=== PATIENT | male | born 1960 | race Caucasian/White ===

== ENCOUNTER 2016-11-05 00:23 | Inpatient (IN) ==
[2016-11-05 00:47] LABS: MANUAL DIFF NEEDED? NO
[2016-11-05 00:52] LABS: BASO% 0.1 % (0.0-0.8); HEMATOCRIT 41.5 % (42.0-52.0); HEMOGLOBIN 14.3 g/dL (14.0-18.0); IMM GRAN# 0.05 X1000 (0.0-0.04); IMM GRAN% 0.3 % (0.0-0.5); LYMPH% 10.1 % (20.5-51.1); MCH 29.8 PG (27-31); MCHC 34.5 g/dL (33-37); MCV 86.5 FL (81-99); MONO# 1.21 X1000 (0.11-0.59); MONO% 7.6 % (1.7-9.3); MPV 11.4 FL (7.4-10.4); NEUT% 81.9 % (42.2-75.2); PLT 177 X1000 (130-400)
[2016-11-05 01:11] LABS: AGAP 13; ALBUMIN 3.7 g/dL (3.5-5.0); ALKALINE PHOSPHATASE 59 U/L (32-122); BUN 17 mg/dL (8-22); CALCIUM 8.8 mg/dL (8.8-10.2); CHLORIDE 98 mmol/L (98-107); COSMO 277; GOT 12 U/L (10-34); GPT 18 U/L (10-44); MAGNESIUM 1.8 mg/dL (1.5-2.7); SODIUM 134 mmol/L (136-145); TCO2 23 mmol/L (25-35); TOTAL BILIRUBIN 0.99 mg/dL (0.20-1.00); TOTAL PROTEIN 7.3 g/dL (6.3-8.3)
[2016-11-05 01:16] LABS: INR 1.1; PROTIME 11.6 Seconds (9.2-11.7); PTT 30.5 Seconds (22.0-36.0)
[2016-11-05] MEDS ORDERED: TUSSIONEX LIQUID PO ONE (04:40)
[2016-11-05] MEDS: ZOSYN 3.375 GM/NS 3.375 GM/50 ML IVPB IV SCH ×4 (06:07→23:21)
[2016-11-05] MEDS: MORPHINE IV PRN ×3 (06:07→16:38)
[2016-11-05] MEDS: TYLENOL PO PRN (06:07)
--- NOTE | 2016-11-05 06:14 | EKG Report ---
Test Performed on : 11/05/2016 00:18:23 AM Test Reason : CP Blood Pressure : / mmHG Vent. Rate : 100 BPM Atrial Rate : 100 BPM P-R Int : 122 ms QRS Dur : 116 ms QT Int : 362 ms P-R-T Axes : 041 252 056 degrees QTc Int : 466 ms Normal sinus rhythm. Lateral infarct , age undetermined Inferior-posterior infarct , age undetermined Abnormal ECG No previous ECGs available Unconfirmed Result
[2016-11-05 06:52] LABS: HDL 58 mg/dL (35-55); LDL 101 mg/dL; TRIGLYCERIDES 98 mg/dL (39-160); VLDL 20 mg/dL
--- NOTE | 2016-11-05 07:30 | Diag Imaging Result Doc PS360 ---
CHEST-2 VIEWS - 11/05/2016 INDICATION: CP TECHNIQUE: COMPARISON: 10/20/2016 FINDINGS: There is significant worsening in ill-defined infiltrate and effusion at the left lower lobe. This is best appreciated on the lateral view. Stable sternotomy wires. Heart size remains top normal. Urinary vascularity appears normal. IMPRESSION: Worsening infiltrate and effusion at the left lower lobe. Correlate for pneumonia. Electronically signed by Mickey Hilton 11/05/2016 7:28 AM
--- NOTE | 2016-11-05 08:35 | HISTORY AND PHYSICAL ---
PRIMARY SPEARER: Dr. Mcginnis. PRIMARY GENERAL PROVIDER.: The patient apparently does not have a primary general provider. CHIEF COMPLAINT: Chest pain and coughing of blood. HISTORY OF PRESENT ILLNESS: Mr. Doyle is a 55-year-old, male, with a past medical history of hypertension, hyperlipidemia, coronary artery disease status post coronary artery bypass grafting, GERD and seizure disorder. The seizure disorder is questionable as the patient states that he does not have seizures; it is listed on past medical charting. He states that he has migraines. He presented to the emergency room with chest pain and stated that he had been coughing up blood since yesterday. He apparently has a frequent substernal angina and has since his coronary artery bypass graft in April of 2013. He follows up outpatient with Dr. Mcginnis. I believe he saw him last week. A CT scan was obtained in the emergency room. Previously the CT's of his chest have shown a left-sided cavitary lesion. The patient states that he has had surgical intervention on the left lung of unsure etiology. Again, the patient is a poor historian, but I believe that it may have had something to do with a pneumothorax. At any rate, the CT scan was compared to the one done on 06/09/2016, which showed a consolidation at the left lower lobe associated with partially drowned left lower lobe basilar segments, which contains multiple gas and fluid pockets within the parenchyma, which could represent pulmonary abscess. It was also noted as having fatty liver and cholelithiasis. On interview with the patient, he stated that on top of the daily substernal chest pain which has been worse over the past 2 days and did include nausea and vomiting 2 days ago. He has had right upper quadrant pain and has been told that his gallbladder is bad. Apparently, he was at some point seeking cardiology permission to have his gallbladder removed. He states that 2 weeks ago he had profound nausea and vomiting, filling up an entire wastebasket, but he also said that he visited the emergency room here and the last emergency room visit was back in May of 2016. So again I am unsure on the time frame of when this happened. At any rate, the patient is tender in his right upper quadrant. He will be admitted to CICU for further evaluation and treatment. PAST MEDICAL HISTORY: 1. Hypertension. 2. Hyperlipidemia. 3. Coronary artery disease status post CABG in April 2013. 4. GERD. 5. Seizure disorder versus migraines. 6. Chronic pain. PREVIOUS SURGICAL HISTORY: Status post CABG, status post left lung lobectomy of unknown etiology. SOCIAL HISTORY: Lives at home with his girlfriend. May drink 1-2 beers per month. Denies tobacco. He quit smoking back in 1999. Denies illicit drug use or abuse. FAMILY HISTORY: Positive for hypertension. ALLERGIES: No known drug allergies. HOME MEDICATIONS: 1. Aspirin 81 mg p.o. b.i.d. 2. Toprol-XL 100 mg p.o. daily. 3. Plavix 75 mg p.o. daily. 4. Nitroglycerin 0.4 mg sublingual p.r.n. chest pain. REVIEW OF SYSTEMS: Fourteen point review of systems conducted with the patient pertinent positives listed above in the HPI. All other systems were reviewed and found to be negative. PHYSICAL EXAMINATION: VITAL SIGNS: Temperature 98.7 degrees, pulse 102, respirations 22, blood pressure 132/76, oxygen saturation 96%. GENERAL: A 55-year-old male, a very poor historian, but is alert and oriented x3. Answers all questions appropriately. Girlfriend at bedside. HEENT: Head is atraumatic, normocephalic. Pupils equal, round, reactive to light. Extraocular eye movement intact. Sclerae is anicteric. Conjunctivae is pink. Oral mucosa is moist. NECK: Supple. No JVD. No thyromegaly. Trachea is midline. No cervical lymphadenopathy. CARDIAC: Regular rhythm. S1, S2 appreciated. No murmurs, gallops, rubs. LUNGS: Decreased with shallow breaths related to coughing. No rhonchi, wheezes or rales. Symmetrical rise and fall with respirations. ABDOMEN: Protuberant, soft, nondistended. Tender in the right upper quadrant and epigastric region. No rebound tenderness. No pulsatile mass. No organomegaly. EXTREMITIES: No clubbing, cyanosis, or edema. 2+ pedal pulses. GENITOURINARY: The patient voids, otherwise deferred. NEUROLOGICAL: Alert and oriented x3. Cranial nerves 2-12 are grossly intact. DIAGNOSTIC DATA: CT of the chest: Please see HPI. Chest x-ray shows a left lower lobe consolidation. LABORATORY DATA: WBC 15.90, hemoglobin 14.3, hematocrit 41.5, platelet count 177. Coagulations are within normal limits. D-dimer is 0.36. Sodium 134, potassium 4, chloride 98, carbon dioxide 23, BUN 17, creatinine 1, glucose 223. ASSESSMENT AND PLAN: 1. Left lobe abscess versus cavitary lesion. Cannot rule out malignancy. Will order CEA. Consult Dr. Velazquez. We will start patient on Zosyn related to his profound nausea and vomiting recently. It is possible that this is secondary to an aspiration. The patient has had hemoptysis. Will hold his Plavix. Will continue aspirin 81 mg at this time. 2. Unstable angina. The patient sees Dr. Mcginnis. We will consult him. He apparently takes 81 mg of aspirin twice daily, as well as Plavix. We will continue the aspirin 81 mg daily. Hold Plavix and a second aspirin now. We will defer to Dr. Mcginnis. We will hold for hemoptysis. 3. Right upper quadrant pain with noted cholelithiasis on CT scan. We will order a right upper quadrant ultrasound, consult Dr. Botello to evaluate for cholecystitis. Will as noted above start Zosyn 3.375 intravenous every 6 hours. We will also collect blood cultures. 4. Coronary artery disease status post coronary artery bypass graft. Continue beta mikey. 5. Hyperglycemia with no previous diagnosis of diabetes mellitus. We will check hemoglobin A1c. Further recommendations per patient clinical course. Dictated by LORRIE Chavez for Jason Lewis MD Seen,examined and discussed case with SOCIAL SERVICES AIDE. cc: LORRIE Chavez MD [facility]
--- NOTE | 2016-11-05 08:37 | Diag Imaging Result Doc PS360 ---
US GB < RUQ (LIMITED) - 11/05/2016 INDICATION: RUQ pain TECHNIQUE: COMPARISON: 10/21/2016 FINDINGS: Stable advanced hepatic steatosis. The gallbladder, pancreas, and right kidney are normal. Common bile duct measures 5 mm. Aorta, IVC, and main portal vein are patent. IMPRESSION: Stable hepatic steatosis. Electronically signed by Mickey Hilton 11/05/2016 8:35 AM
--- NOTE | 2016-11-05 09:02 | Diag Imaging Result Doc PS360 ---
EXAM: CT THORAX W/CONTRAST HISTORY: Hemoptosis TECHNIQUE: CT of the chest with intravenous contrast with dose reduction (clarity.) COMMENT: There are no filling defects demonstrated in the pulmonary arteries. The aorta is normal in caliber without evidence of dissection. There has been previous sternotomy. There is a small left pleural effusion. There is consolidation and bronchiectasis versus multiple infected cavities or bullae in the left lower lobe. At the very least, there is left lower lobe pneumonia. There is a small pleural-based nodule in the anterior left lower lobe on image 59 measuring less than 5 mm in diameter. There are minimal fibrotic changes in the posterior right lower lobe. There is apparent hepatic steatosis. There are small stones and/or sludge in the gallbladder dependently. This was also the case of the time the previous abdominal study of 06/09/2016. While there are no previous thoracic studies available for comparison, the fibrotic changes in the right lower lobe posteriorly as well as the bronchiectatic changes in the left lower lobe were visible on the abdominal study of 06/09/2016. IMPRESSION: Left lower lobe pneumonia with exacerbation of bronchiectasis and possible abscesses. Electronically signed by Dwight Martinez 11/05/2016 8:59 AM
[2016-11-05] MEDS: ASPIRIN EC PO SCH (09:36)
[2016-11-05] MEDS: TOPROL XL PO SCH (09:36)
[2016-11-05] MEDS ORDERED: VANCOMYCIN 1 GM/NS 1 GM/250 ML IVPB IV ONE (12:35)
[2016-11-05] MEDS ORDERED: VANCOMYCIN IV PER PHARMACY MISC SCH (12:45)
--- NOTE | 2016-11-05 13:22 | CONSULTATION ---
DATE OF CONSULTATION: 11/05/2016 REFERRING PHYSICIAN: Kamaljit Marks MD CHIEF COMPLAINT: Evaluation for hemoptysis, pneumonia. HISTORY OF PRESENTING ILLNESS: This is a 55-year-old man with past history of hypertension, chronic pain, hyperlipidemia, carotid disease, coronary artery disease, bypass surgery in 2012 with triple bypass. He mentions that he has 6 additional blockages that were not surgery or stent, reflux disease, seizure disorder versus migraines. He had also a thoracic surgery for pneumothorax in 1997. At that time he had a thoracotomy for a benign condition. He cannot recall the details of it. PAST MEDICAL HISTORY: Pneumothorax in 1997 and a thoracotomy for a benign condition at that time. He could not recall further details on the left side. Coronary artery disease with bypass surgery in 2012, hypertension, hyperlipidemia, borderline diabetes, reflux disease, migraines or seizure disorder and chronic pain. PAST SURGICAL HISTORY: As above, left lobectomy for likely a benign condition. Patient cannot recall details. Pneumothorax at that time. FAMILY HISTORY: Coronary artery disease, hypertension. SOCIAL HISTORY: Living with girlfriend. Ex smoker in 1999. He is on disability for his coronary artery disease. ALLERGIES: No known drug allergies. REVIEW OF SYSTEMS: As detailed in history of presenting illness, otherwise noncontributory. MEDICATIONS AT HOME AND IN THE HOSPITAL: Reviewed. Baby aspirin has been given. Tylenol. He is on Zosyn. I added vancomycin, morphine, Zofran and nitroglycerin. PHYSICAL EXAMINATION: General: He is in bed. Has cough episodes every now on then. Girlfriend at the bedside. Family at the bedside. Not in distress. Vital Signs: Noted. Head and Neck: Examined. He is on nasal cannula oxygen. Trachea midline. Chest: Reduced entry and a few wheezes. Crackles at the left base. Cardiac: S1, S2. There is also on chest exam old thoracotomy scar on the left side. There is mediastinal or rather old sternotomy scar also present. Cardiac: S1, S2. Abdomen: Nontender. Extremities: There is +1 pedal edema. Neurologic: Awake, alert, communicative. LABS AND INVESTIGATIONS: Chest CT scan report and images reviewed, and that showed left lower lobe pneumonia, bronchiectasis, possible evolving abscess. Sodium 134, potassium 23, creatinine 1, potassium 4. CBC noted. WBC 15.9, hemoglobin 14.3. ASSESSMENT AND PLAN: A 55-year-old man with extensive past medical history as above including coronary artery disease, coronary artery bypass graft, hypertension, hyperlipidemia, borderline diabetes, possible seizures or migraine, and the past surgical history including thoracotomy for a benign condition 1997 and a pneumothorax at that time requiring a chest tube per patient. Presented to the hospital with hemoptysis. 1. Pneumonia. 2. Hemoptysis likely secondary to pneumonia and antiplatelets with aspirin. 3. The chances are high that we are dealing with a benign condition and malignancy as well is likely. 4. I agree with the current antibiotics. Add vancomycin. 5. If hemoptysis does not improve with the current therapy, and the chance is that it will, then we will consider airway examination with bronchoscopy. 6. Patient likely has obstructive sleep apnea as a contributing factor as a cardiac risk factor, and that will be managed as an outpatient. Thank you for the courtesy of this consultation. cc: Divine Mays MD
[2016-11-05] MEDS ORDERED: VANCOMYCIN 2 GM in NS 500 ML IV ONE (15:00)
[2016-11-05] MEDS: ZOFRAN IV PRN (17:21)
--- NOTE | 2016-11-05 19:01 | CONSULTATION ---
DATE OF CONSULTATION: 11/05/2016 REASON FOR REFERRAL: Abdominal pain. Chest pain. HISTORY OF PRESENT ILLNESS: This is a 55-year-old, white male, who reports issues with frequent chest pain. He has a history of coronary artery bypass graft in 2012. He is followed by Dr. Mcginnis. The patient reports issues off and on with chest pain since his open-heart surgery. He has noticed some chronic cough and coughing up blood. He has reported some episodes of nausea and vomiting. He was actually in the hospital. I am not sure if he was admitted or just came to the ER about 2 weeks ago with nausea and vomiting. He complains of occasional constipation versus diarrhea. No reported blood in the stool or black stools. He has had a CT scan that showed some gallstones versus sludge, although an abdominal ultrasound did not show any evidence of gallstones. It showed hepatic steatosis. His CT scan of the chest showed pneumonia with a possible abscess versus cavitary lesion. Pulmonary consult has been obtained. PAST MEDICAL HISTORY: Hypertension, hyperlipidemia, coronary artery disease with history of coronary artery bypass graft in 2012. GERD. Seizure versus migraine. Chronic pain. PREVIOUS SURGICAL HISTORY: Coronary artery bypass graft in April 2013. History of left lung biopsy and left lung lobectomy of uncertain etiology. ALLERGIES: No known drug allergies. HOME MEDICATIONS: Nitroglycerin sublingual as needed, Toprol-XL 100 mg daily. Plavix 1 tablet daily, aspirin 81 mg daily. Last Plavix and aspirin was on Friday. SOCIAL HISTORY: History of tobacco use. Quit in 1999. History of occasional alcohol use. He has a girl friend. He has 4 children. He is on disability. REVIEW OF SYSTEMS: HEENT: He reports coughing up blood and chronic cough. Cardiovascular: With complaints of substernal chest pain. Pulmonary: Complains of shortness of breath and chronic cough with hemoptysis. GI: Reports abdominal pain, epigastric pain and recent episodes of nausea and vomiting. : No urinary complaints. Musculoskeletal: Reports chronic back pain. Neurological: There is history of seizures versus migraines. He does not report any recent seizures. PHYSICAL EXAMINATION: Vital Signs: Temperature 98.6 degrees, pulse 79, respirations 20, blood pressure 133/87. Generally: Patient is awake, alert, oriented to person, place, and time. HEENT: Normocephalic, atraumatic. Pupils equal, round, reactive to light. Sclerae nonicteric. Cardiovascular: Regular rate and rhythm. Respiratory: With some decreased breath sounds. With deep inspiration he has noted coughing. Abdomen: Soft, nondistended. Some tenderness diffusely to epigastric area, left quadrant versus right quadrant. Extremities: No lower extremity edema noted. +2 pedal pulses bilaterally. Neurological: Cranial nerves 2-12 grossly intact. Patient is awake, alert, oriented to person, place, and time. DIAGNOSTIC RESULTS: Laboratory: Hematology: White count 15.90, hemoglobin 14.3, hematocrit 41.5, MCV 86.5, platelet 177,000. Coagulation: ProTime 11.6, INR 1.10, PTT 30.5, D-dimer 0.36. Chemistry: Sodium 134, potassium 4, chloride 98, CO2 of 23, BUN 17, creatinine 1, glucose 223. Total bilirubin 0.99. AST 12. ALT 18. Alkaline phosphatase 59. Imaging: Chest CT showed left lower lobe pneumonia with exacerbation of bronchiectasis and possible abscesses. There was a question of small stones versus sludge in the gallbladder. This was also noted in May 2016. Also noted hepatic steatosis. Ultrasound of the abdomen did not show any evidence of gallstones. Otherwise noted hepatic steatosis. Common bile duct measured 5 mm. ASSESSMENT: 1. Chest pain with history of coronary artery disease. History of CABG in 2012. Cardiology has been consulted. 2. Left lobe abscess versus cavitary lesion, pneumonia. Pulmonary has been consulted. Continue antibiotics. 3. Abdominal pain. Questionable cholelithiasis on CT scan, but ultrasound was normal except for hepatic steatosis. He has had episodes of nausea and vomiting over the last several weeks. 4. Hemoptysis with abnormal CT scan of the chest. Pulmonary consult has been obtained. PLAN: Continue supportive care. Continue antibiotics. Awaiting Pulmonary and Cardiology consult. Depending on those findings, we may proceed with an EGD. His Plavix will need to be on hold for several more days before being able to proceed with endoscopy. Recommended PPI. We will continue to follow and further plans will be made as needed. I have discussed this case with Dr. Vegas. Thank you for this consultation. Dictated by LORRIE Ballard for Mamadou Vegas MD cc: LORRIE Osborne MD [facility]
[2016-11-05] MEDS: TESSALON PO PRN (20:32)
[2016-11-05] MEDS: TUSSIONEX LIQUID PO PRN (23:21)
[2016-11-06] MEDS: TYLENOL PO PRN (03:25)
[2016-11-06] MEDS: DUONEB (A & A) INH PRN ×5 (03:40→23:00)
[2016-11-06] MEDS: PRILOSEC PO SCH ×2 (05:16→06:04)
[2016-11-06] MEDS: ZOSYN 3.375 GM/NS 3.375 GM/50 ML IVPB IV SCH ×4 (05:17→23:22)
[2016-11-06 05:39] LABS: MANUAL DIFF NEEDED? NO
[2016-11-06 05:49] LABS: BASO% 0.1 % (0.0-0.8); EOS# 0.06 X1000 (0.0-0.7); EOS% 0.5 % (0.0-10.0); HEMATOCRIT 40.6 % (42.0-52.0); HEMOGLOBIN 13.7 g/dL (14.0-18.0); IMM GRAN# 0.03 X1000 (0.0-0.04); IMM GRAN% 0.2 % (0.0-0.5); LYMPH# 1.62 X1000 (1.2-3.4); LYMPH% 13.2 % (20.5-51.1); MCH 29.7 PG (27-31); MCHC 33.7 g/dL (33-37); MCV 88.1 FL (81-99); MONO# 0.85 X1000 (0.11-0.59); MONO% 6.9 % (1.7-9.3); MPV 11.6 FL (7.4-10.4); NEUT% 79.1 % (42.2-75.2); PLT 179 X1000 (130-400); RBC 4.61 XMIL (4.7-6.1)
[2016-11-06] MEDS: NITROGLYCERIN SL PRN (06:10)
[2016-11-06] MEDS: TESSALON PO PRN ×3 (06:11→17:28)
[2016-11-06 06:27] LABS: AGAP 14; BUN 17 mg/dL (8-22); CALCIUM 8.4 mg/dL (8.8-10.2); CHLORIDE 100 mmol/L (98-107); COSMO 281; SODIUM 139 mmol/L (136-145); TCO2 25 mmol/L (25-35)
[2016-11-06] MEDS: TOPROL XL PO SCH (08:22)
[2016-11-06] MEDS: ASPIRIN EC PO SCH (08:22)
--- NOTE | 2016-11-06 10:00 | CONSULTATION ---
DATE OF CONSULTATION: 11/06/2016 REASON FOR CONSULTATION: Cardiology was consulted. The patient has pneumonia. PAST MEDICAL HISTORY: 1. Coronary artery bypass grafting. 2. Patient has history of hypertension. 3. Hyperlipidemia. 4. Seizure disorder. HISTORY OF PRESENT ILLNESS: He comes with complaints of having sharp episodes of chest pain and also has had cough with low-grade fevers and hemoptysis. This kramer been going on recently for the last week or so but more so. He also had some nausea and vomiting. CT scan was done which revealed a left lung cavitary lesion and pulmonology has been consulted. From a cardiac standpoint, no exertional component of chest pain. He describes his symptoms as sharp in character. There is no history of palpitations. There is no history of syncope. REVIEW OF SYSTEMS: A 14 point review of systems. GI System: As above. There is no history of hematemesis or melena. Central Nervous System: No focal weakness to suggest a CVA or TIA. Genitourinary System: There is no dysuria or hematuria. Respiratory System: As above. PAST MEDICAL HISTORY: 1. Coronary artery disease, status post coronary artery bypass grafting in 2012. 2. Hypertension. 3. Hyperlipidemia. 4. Gastroesophageal reflux disease. 5. Migraines. 6. Left lung lobectomy, unknown etiology in the past and he had a pneumothorax at that time. SOCIAL HISTORY: He lives at home with his girlfriend. He drinks about 1-2 beers a month at best. He quit smoking in 1999. ALLERGIES: He is not known to be allergic to any medications. MEDICATIONS: His home medications include aspirin 81, 100 Toprol, Plavix 75, nitroglycerin p.r.n. PHYSICAL EXAMINATION: Vital Signs: Blood pressure was 132/70. Cardiovascular System: Normal jugular venous pressure. First and second heart sounds were heard. There is no S3 gallop. Respiratory System: There are increased crepitations, wheeze on the left lung. Abdomen: Soft, nontender. There was no guarding or rigidity. Bowel sounds were heard. Central Nervous System: Alert, oriented, and was moving all 4 extremities. Extremities: Examination of extremities revealed no pedal edema. HEENT: Atraumatic, normocephalic. Pupils were equal and reacting to light. LABORATORY EXAMINATION: WBC 15, hemoglobin 14, hematocrit 41, platelet count of 117,000. Chemistry, he was ruled out for myocardial infarction by cardiac enzymes. Sodium 139, potassium 4, BUN 17, creatinine 1.1. CT scan of his chest revealed left lower lobe pneumonia with exacerbation of bronchiectasis, possible abscess. ASSESSMENT AND PLAN: Mr. Vishnu Doyle is a 55-year-old, gentleman with a history of coronary artery disease, coronary artery bypass grafting, hypertension. He is admitted with cough, hemoptysis, and chest discomfort. From a cardiac standpoint: 1. He has been ruled out for myocardial infarction by cardiac enzymes. 2. We will get an echocardiogram to assess cardiac and valvular function. 3. His chest pains are atypical. However, he has pneumonia with likely abscess and pulmonology has been consulted. In addition, he has had some abdominal discomfort. GI has been consulted. 4. He has been started on antibiotics. 5. As far as medications are concerned, would recommend continuing with aspirin and beta- blockers. His Plavix has been held. He had surgery in the past and no recent stent placement, and the Plavix can be discontinued. He is on Zosyn and vancomycin. I have not made any other changes to his medications. Thank you for the consult. We will follow hospital course. cc: Ramses Colon MD
[2016-11-06] MEDS: MORPHINE IV PRN ×3 (10:53→23:21)
--- NOTE | 2016-11-06 11:25 | PROGRESS NOTE ---
DATE: 11/06/2016 SUBJECTIVE: This patient states that he is feeling about the same. He is still coughing up blood. He is still having abdominal soreness and left-sided chest pain. This patient has been followed by Cardiology Department and Pulmonary Department, and Gastroenterology Department as well. OBJECTIVE: Vital Signs: Temperature 98.1 degrees, pulse 77, respiratory rate 22, blood pressure 122/77, oxygen saturation 99 on room air. HEENT: Head normocephalic. No trauma. PERRLA. Neck: Supple. No JVD. No masses. Central trachea. Chest: Decreased breath sounds of the left lower lung with rhonchi and rales. Abdomen: Soft, mild generalized tenderness to palpation but mostly at the level of the periumbilical area. Extremities: No edema. No clubbing. No cyanosis. Neurological: The patient is alert and oriented x3. No focal neurological deficits. LABORATORY: WBC 12.2, hemoglobin 13.7, hematocrit 40.6, platelet 179,000. Sodium 139, potassium 4, chloride 100, bicarbonate 25, BUN 17, creatinine 1.1. Glucose 124. Calcium 8.4. ASSESSMENT AND PLAN: 1. Left lower lobe pneumonia, possible abscess. We cannot rule out malignancy. Pulmonary Department is following this patient. I will continue with vancomycin and Zosyn. 2. Hemoptysis likely secondary to #1. Plavix has been has been discontinued. Cardiology Department is on board. 3. Chest pain. This is likely related to his pneumonia, troponins have been negative x4. He is not complaining of typical chest pain. We will monitor. 4. Right upper quadrant pain with noted cholelithiasis on CT scan but ultrasound did not show any cholelithiasis. Gastroenterology Department is following this patient. Will monitor. 5. History of coronary artery disease status post CABG. Continue with the same medication. Cardiology Department is following this patient closely. 6. Hyperglycemia. His hemoglobin A1c is 6. Probably this patient has pre diabetes. We will continue to monitor. CRITICAL CARE TIME: 35 minutes. cc: Kamaljit Marks MD
[2016-11-06] MEDS: ZOFRAN IV PRN (11:32)
[2016-11-06] MEDS: VANCOMYCIN 1,700 MG in NS 250 ML IV SCH (14:20)
--- NOTE | 2016-11-06 14:27 | PROGRESS NOTE ---
DATE: 11/06/2016 SUBJECTIVE: Patient states he is still coughing up some blood. Still reports abdominal soreness and some chest pain. He has been seen by cardiology and pulmonology. OBJECTIVE: Vital Signs: Temperature 98.4 degrees, pulse 78, respirations 18, blood pressure 127/79. General Appearance: Generally, the patient is awake, alert, in no acute distress. Respiratory: Lung sounds decreased. Abdomen: Some mild generalized tenderness. Positive bowel sounds. LABORATORY: Hematology: White count 12.26, hemoglobin 13.7, hematocrit 40.6, MCV 88.1. Chemistry: Sodium 139, potassium 4.0, chloride 100, CO2 25, BUN 17, creatinine 1.1, glucose 124. ASSESSMENT AND PLAN: 1. Pneumonia. 2. Questionable abscess, unable to rule out malignancy. Pulmonary following. 3. Hemoptysis, most likely secondary to #1. His Plavix is on hold. 4. Chest pain. 5. Abdominal pain. CT scan showed possible cholelithiasis, but ultrasound did not show any evidence of stones. We will continue to follow. 6. Coronary artery disease. History of coronary artery bypass graft, following with Cardiology. PLAN: Continue supportive care. His abdominal pain could be related to muscle strain from his coughing. Pulmonary following pneumonia and hemoptysis. We will continue to monitor and if needed we can proceed with an EGD once he has been off Plavix for appropriate days. Patient is at high risk for sedation due to his other problems, including pneumonia and coronary artery disease. We will continue to follow and proceed with endoscopy if needed. I have discussed this case with Dr. Vegas. Dictated by LORRIE Ballard for Mamadou Veags MD cc: LORRIE Osborne MD
[2016-11-06] MEDS: TUSSIONEX LIQUID PO PRN (20:54)
[2016-11-07 05:15] LABS: MANUAL DIFF NEEDED? NO
[2016-11-07 05:27] LABS: BASO% 0.1 % (0.0-0.8); EOS# 0.11 X1000 (0.0-0.7); EOS% 1.3 % (0.0-10.0); HEMATOCRIT 38.9 % (42.0-52.0); HEMOGLOBIN 13.1 g/dL (14.0-18.0); IMM GRAN# 0.02 X1000 (0.0-0.04); IMM GRAN% 0.2 % (0.0-0.5); LYMPH# 1.13 X1000 (1.2-3.4); LYMPH% 13.3 % (20.5-51.1); MCH 29.5 PG (27-31); MCHC 33.7 g/dL (33-37); MCV 87.6 FL (81-99); MONO# 0.71 X1000 (0.11-0.59); MONO% 8.3 % (1.7-9.3); MPV 11.5 FL (7.4-10.4); NEUT% 76.8 % (42.2-75.2); PLT 190 X1000 (130-400); RBC 4.44 XMIL (4.7-6.1)
[2016-11-07 05:48] LABS: CALCIUM 8.5 mg/dL (8.8-10.2); POTASSIUM 3.8 mmol/L (3.5-5.1)
[2016-11-07] MEDS: PRILOSEC PO SCH (06:09)
[2016-11-07] MEDS: ZOSYN 3.375 GM/NS 3.375 GM/50 ML IVPB IV SCH ×4 (06:09→23:25)
[2016-11-07] MEDS: TESSALON PO PRN ×2 (06:09→20:42)
[2016-11-07] MEDS: DUONEB (A & A) INH PRN ×5 (07:09→22:47)
[2016-11-07] MEDS: ZOFRAN IV PRN ×2 (08:24→16:19)
[2016-11-07] MEDS: TOPROL XL PO SCH (08:26)
[2016-11-07] MEDS: ASPIRIN EC PO SCH (08:26)
[2016-11-07] MEDS: MORPHINE IV PRN (11:16)
--- NOTE | 2016-11-07 11:49 | EKG Report ---
Test Performed on : 11/07/2016 11:20:26 AM Test Reason : CHEST PAIN Blood Pressure : / mmHG Vent. Rate : 098 BPM Atrial Rate : 098 BPM P-R Int : 136 ms QRS Dur : 124 ms QT Int : 382 ms P-R-T Axes : 040 252 036 degrees QTc Int : 487 ms Normal sinus rhythm. Right bundle branch block Lateral infarct (cited on or before 20-JAN-2014) Inferior infarct (cited on or before 20-JAN-2014) Abnormal ECG When compared with ECG of 05-NOV-2016 00:18, Right bundle branch block is now present Confirmed by René GRANDE, Vance Marquez ([id number]) on 11/07/2016 3:01:16 PM
[2016-11-07] MEDS: VANCOMYCIN 1,700 MG in NS 250 ML IV SCH (14:40)
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
--- NOTE | 2016-11-07 15:21 | PROGRESS NOTE ---
DATE: 11/07/2016 SUBJECTIVE: This patient states that he is feeling about the same. He is still coughing up blood but compared with admission he feels better. He is still having abdominal discomfort mostly at the level of the left flank and right upper quadrant. Gastroenterology Department, Cardiology Department, Pulmonary Department and now Infectious Disease Department are following this patient. OBJECTIVE: Vital Signs: Temperature 98 degrees, pulse 91, respiratory rate 18, blood pressure 112/87, O2 saturation 99 on 2 L of nasal cannula. HEENT: Head normocephalic. No trauma. PERRLA. Neck: Supple. No JVD. No masses. Central trachea. Chest: Decreased breath sounds at the level of the left lower lung with rhonchi and rales. Abdomen: Soft, mild tenderness to palpation at the level of the left flank and right upper quadrant, mild distended, positive bowel sounds. Extremities: No edema. No clubbing. No cyanosis. Neurological: The patient is alert and oriented x3. No focal neurological deficits. LABORATORY: WBC 8.5, hemoglobin 13.1, hematocrit 38.9, platelets 190,000. Sodium 139, potassium 3.8, chloride 103, bicarbonate 25, BUN 19, creatinine 1.3, glucose 122, calcium 8.5. ASSESSMENT AND PLAN: 1. Left lower lobe pneumonia, possible abscess. We cannot rule out malignancy. Pulmonary Department is following this patient. We will continue with the vancomycin and Zosyn for now. Infectious Disease Department also is evaluating this patient. 2. Hemoptysis likely secondary to #1. Plavix has been discontinued. Cardiology Department is on board. 3. Chest pain. This is likely related to his pneumonia and troponins have been negative x4. He is not complaining of typical chest pain. We will continue to monitor. 4. Right upper quadrant pain with noted cholelithiasis on CT scan. Ultrasound did not show any cholelithiasis. Gastroenterology is on board. We will continue following their recommendations. 5. History of coronary artery disease status post CABG. Continue with the same medications. Cardiology Department is following this patient closely. 6. Hyperglycemia. His hemoglobin A1c is 6. This patient probably has pre diabetes. We will continue to monitor. This patient is stable. We will continue with the same management for now. I will transfer this patient to the medical floor with telemetry. cc: Kamaljit Marks MD
[2016-11-07] MEDS: TUSSIONEX LIQUID PO PRN (20:42)
[2016-11-08] MEDS: ZOSYN 3.375 GM/NS 3.375 GM/50 ML IVPB IV SCH ×4 (04:56→22:52)
[2016-11-08] MEDS: TYLENOL PO PRN (04:56)
[2016-11-08] MEDS: PRILOSEC PO SCH ×2 (04:56→07:58)
[2016-11-08 05:29] LABS: MANUAL DIFF NEEDED? NO
[2016-11-08 05:32] LABS: BASO% 0.2 % (0.0-0.8); EOS# 0.32 X1000 (0.0-0.7); EOS% 3.8 % (0.0-10.0); HEMATOCRIT 39.4 % (42.0-52.0); IMM GRAN# 0.02 X1000 (0.0-0.04); IMM GRAN% 0.2 % (0.0-0.5); LYMPH# 1.17 X1000 (1.2-3.4); LYMPH% 13.9 % (20.5-51.1); MCH 29.1 PG (27-31); MCV 88.1 FL (81-99); MONO# 0.65 X1000 (0.11-0.59); MONO% 7.7 % (1.7-9.3); MPV 11.5 FL (7.4-10.4); NEUT% 74.2 % (42.2-75.2); PLT 220 X1000 (130-400); RBC 4.47 XMIL (4.7-6.1)
[2016-11-08 05:58] LABS: CALCIUM 8.6 mg/dL (8.8-10.2); POTASSIUM 3.8 mmol/L (3.5-5.1)
[2016-11-08] MEDS: ASPIRIN EC PO SCH (08:03)
[2016-11-08] MEDS: TOPROL XL PO SCH (08:03)
[2016-11-08] MEDS: DUONEB (A & A) INH PRN ×3 (08:19→15:38)
--- NOTE | 2016-11-08 08:25 | PROGRESS NOTE ---
DATE: 11/08/2016 CONCLUSION: The patient has a left lower lobe pneumonia, which may contain small abscesses. MEDICATIONS: The patient is receiving a combination of vancomycin and Zosyn. This is the 3rd day of treatment with the antibiotics. PHYSICAL EXAMINATION: Vital Signs: Temperature is 98.6, pulse 86, respirations 18, blood pressure 146/82. General: This is a chronically ill-appearing, middle-aged male. He is in no acute distress. Lungs: Clear to auscultation. Cardiovascular: Regular heart rate. Abdomen: Soft and nontender. Neurologic: At this time, the patient was somewhat lethargic. He had been sleeping. He could move his extremities. There was no tremor. LAB AND X-RAY: The patient's CBC shows a white count of 8390 hemoglobin 13 platelet count 220,000. Creatinine is 1.3. GFR is 57. Sputum culture is growing normal gene. Blood cultures are negative. ASSESSMENT AND PLAN: The patient has left lower lobe pneumonia with possible abscess formation. I plan to continue with the patient's current antibiotics, namely vancomycin and Zosyn pending further results. It is day 3 with them and I plan to continue the antibiotics until there is more improvement in his chest x-ray and until the patient is feeling better. Overall, I think it will take at least 14 weeks of IV antibiotics to treat his infection. COMORBIDITIES: Cannot really find any definite comorbidity in the patient. cc: Rod Bazzi MD
[2016-11-08] MEDS: MORPHINE IV PRN (09:10)
--- NOTE | 2016-11-08 09:47 | Diag Imaging Result Doc PS360 ---
EXAM: CHEST-1 VIEW HISTORY: SOB TECHNIQUE: Upright AP COMPARISON: 11/05/2016 FINDINGS: Sternal wires are present. The heart remains mildly prominent. There is scarring or infiltrates in the lower left lung. I believe there is left pleural thickening versus a small effusion. Right lung is well expanded and clear. IMPRESSION: Stable chest.. Electronically signed by Lonnie Godfrey 11/08/2016 9:45 AM
[2016-11-08] MEDS: NITROGLYCERIN SL PRN (11:50)
--- NOTE | 2016-11-08 13:24 | PROGRESS NOTE ---
DATE: 11/08/2016 SUBJECTIVE: Patient states he feels about the same. He is still coughing up blood. He is feeling a little bit better than when he was admitted. He is still reporting abdominal discomfort mid abdomen to the right upper quadrant. A CT scan showed questionable cholelithiasis, although an ultrasound of the abdomen showed hepatic steatosis, but no gallstones were noted. OBJECTIVE: Vital signs: Temperature 99.2 degrees, pulse 71, respirations 15, blood pressure 114/87. General: Generally patient is awake, alert, no acute distress. HEENT: Normocephalic, atraumatic. Pupils equal, round, reactive to light. Respiratory: Lung sounds decreased. Some rhonchi, rales on the left side. Abdomen: Soft with some tenderness noted at the epigastric to the right quadrant area. Some distention noted. Positive bowel sounds. LABORATORY: Hematology: White count 8.39, hemoglobin 13.0, hematocrit 39.4, platelet 220. Chemistry: Sodium 143, potassium 3.8, chloride 102, CO2 26, BUN 17, creatinine 1.3, glucose 132. Patient has had a bowel movement today. ASSESSMENT: 1. Pneumonia with questionable abscess following with Dr. Bazzi. He is receiving antibiotics. 2. Hemoptysis secondary to pneumonia. 3. Chest pain. 4. Abdominal pain. 5. Coronary artery disease with history of coronary artery bypass graft. PLAN: Continue supportive care. We will continue to follow. Continue to treat pneumonia which could be causing his other symptoms. He may need an EGD at some point once he is more stable to go through sedation. We will continue to follow along with further plans to be made as needed. Dictated by LORRIE Ballard for Mamadou Vegas MD cc: LORRIE Osborne MD
--- NOTE | 2016-11-08 15:14 | PROGRESS NOTE ---
DATE: 11/08/2016 SUBJECTIVE: This patient states that he is feeling better. He is still coughing up blood, but compared with admission he is much better. He is still having abdominal discomfort mostly at the level of the left flank and right upper quadrant. Gastroenterology Department is on board. They are planning to probably do an EGD at some point once the pneumonia is better. OBJECTIVE: Vital Signs: Temperature 99.4 degrees, pulse 85, respiratory rate 16, blood pressure 138/87, oxygen saturation 95% on 2 L of nasal cannula. HEENT: Head normocephalic. No trauma. PERRLA. Neck: Supple. No JVD. No masses. Central trachea. Chest: Decreased breath sounds at the level of the left lower lung with rhonchi and rales. Abdomen: Soft. Mild tenderness to palpation at the level of the left flank and right upper quadrant. Mild distended positive bowel sounds. Extremities: No edema. No clubbing. No cyanosis. Neurological examination: The patient is alert and oriented x3. No focal neurological deficits. LABORATORY: WBC 8.3, hemoglobin 13, hematocrit 39.4, platelet 220. Sodium 143, potassium 3.8, chloride 102, bicarbonate 26. BUN 17, creatinine 1.3, glucose 132. Calcium 8.6. ASSESSMENT AND PLAN: 1. Left lower lobe pneumonia with possible abscess. Pulmonary Department following this patient. We will continue with vancomycin and Zosyn for now. Infectious Disease Department following this patient. Will monitor. 2. Hemoptysis likely secondary to #1. We will continue with the same management. Plavix has been discontinued. 3. Chest pain. This is likely related to his pneumonia. Troponin has been negative. He is not complaining of typical chest pain. We will continue to monitor. 4. Right upper quadrant with noted cholelithiasis on CT scan. Ultrasound did not show any cholelithiasis. Gastroenterology is on board. We will continue to follow their recommendations. Probably this patient will need an upper endoscopy done at some point during this hospitalization or as an outpatient. 5. History of coronary artery disease status post coronary artery bypass graft. Continue the same medications. Cardiology Department is following this patient closely. 6. Hyperglycemia. His hemoglobin A1c is 6. This patient probably has pre diabetes. We will continue to monitor. cc: Kamaljit Marks MD
[2016-11-08] MEDS: TUSSIONEX LIQUID PO PRN ×2 (16:27→22:52)
[2016-11-08] MEDS: VANCOMYCIN 2,300 MG in NS 500 ML IV SCH (18:59)
[2016-11-09] MEDS: TESSALON PO PRN (03:29)
[2016-11-09 06:01] LABS: MANUAL DIFF NEEDED? NO
[2016-11-09 06:02] LABS: BASO% 0.3 % (0.0-0.8); EOS# 0.43 X1000 (0.0-0.7); EOS% 4.4 % (0.0-10.0); HEMATOCRIT 38.5 % (42.0-52.0); HEMOGLOBIN 12.7 g/dL (14.0-18.0); IMM GRAN# 0.03 X1000 (0.0-0.04); IMM GRAN% 0.3 % (0.0-0.5); LYMPH# 1.32 X1000 (1.2-3.4); LYMPH% 13.6 % (20.5-51.1); MCH 29.3 PG (27-31); MCV 88.7 FL (81-99); MONO# 0.75 X1000 (0.11-0.59); MONO% 7.7 % (1.7-9.3); MPV 11.3 FL (7.4-10.4); NEUT% 73.7 % (42.2-75.2); PLT 224 X1000 (130-400); RBC 4.34 XMIL (4.7-6.1)
[2016-11-09 06:25] LABS: CALCIUM 8.6 mg/dL (8.8-10.2); POTASSIUM 3.6 mmol/L (3.5-5.1)
[2016-11-09] MEDS: PRILOSEC PO SCH (07:06)
[2016-11-09] MEDS: ZOSYN 3.375 GM/NS 3.375 GM/50 ML IVPB IV SCH ×4 (07:06→23:25)
[2016-11-09] MEDS: DUONEB (A & A) INH PRN ×5 (07:57→22:51)
[2016-11-09] MEDS: TOPROL XL PO SCH (09:07)
[2016-11-09] MEDS: ASPIRIN EC PO SCH (09:07)
[2016-11-09] MEDS: ZOFRAN IV PRN (09:08)
[2016-11-09 11:10] LABS: INR 1.03; PROTIME 10.8 Seconds (9.2-11.7)
--- NOTE | 2016-11-09 11:55 | PROGRESS NOTE ---
DATE: 11/09/2016 SUBJECTIVE: Patient is still complaining of abdominal pain and hemoptysis. OBJECTIVE: Vital signs: Temperature 98.5 degrees, pulse 84, respirations 17 blood pressure 135/88. General: The patient is awake, alert, in no acute distress. He is sitting up on the side of the bed. Respiratory: Lung sounds decreased with some rhonchi noted. Abdomen: Soft with some tenderness noted more to the right side. Positive bowel sounds. LABORATORY: Hematology: White count 9.73, hemoglobin 12.2, hematocrit 38.5, MCV 88.7, platelets 224. Chemistry: Sodium 138, potassium 3.6, chloride 100, CO2 26, BUN 17, creatinine 1.3, glucose 138. ASSESSMENT AND PLAN: 1. Hemoptysis. 2. Left lower lobe pneumonia with possible abscess. Continue antibiotics. Dr. Bazzi is also following. 3. Abdominal pain. CT scan showed possible cholelithiasis, but ultrasound did not. He may need esophagogastroduodenoscopy at some point when he is stable enough to proceed with sedation. Will continue to follow. I will discuss this case further with Dr. Vegas and further plans will be made by him. Dictated by LORRIE Ballard for Mamadou Vegas MD cc: LORRIE Osborne MD
--- NOTE | 2016-11-09 13:58 | PROGRESS NOTE ---
DATE: 11/09/2016 SUBJECTIVE: This patient states that he is feeling good, but he is still coughing up blood. He is still having abdominal discomfort. Gastroenterology Department is following this patient as well. OBJECTIVE: Vital Signs: Temperature 98.5 degrees, pulse 84, respiratory rate 17, blood pressure 135/88. O2 saturation 95% on room air. HEENT: Head normocephalic. No trauma. PERRLA. Neck supple. No JVD. No masses. Central trachea. Chest: Decreased breath sounds at the level of the left lower lung with rhonchi and rales. Abdomen is soft. Mild tenderness to palpation at the level of the right upper quadrant. Mild distention. Positive bowel sounds. Extremities: No edema. No clubbing. No cyanosis. Neurologic: The patient is alert and oriented x3. No focal deficits. LABORATORY: WBC 9.7, hemoglobin 12.7, hematocrit 38.5, platelets 224,000. Sodium 138, potassium 3.6, chloride 100, bicarbonate 26. BUN 17, creatinine 1.3, glucose 138. Calcium 8.6. ASSESSMENT AND PLAN: 1. Left lower lobe pneumonia with possible abscess. Pulmonary Department and Infectious Disease Department are following this patient. Probably, this patient will need long-term antibiotics. I will ask for a PICC line today. We will continue with the same management. 2. Hemoptysis likely secondary. 3. Chest pain. This is likely related to his pneumonia, troponin has been negative. He is not complaining of typical cardiac chest pain. 4. Right upper quadrant with noted cholelithiasis on CT but ultrasound did show cholelithiasis. [employer] is on board. I will continue to follow their recommendations. 5. History of coronary artery disease, status post coronary artery bypass graft. Continue with the same medication. Cardiology Department is following this patient. 6. Hyperglycemia: Hemoglobin A1c is fixed. Continue with the same treatment for now. He likely has pre diabetes. His blood sugar has been stable. cc: Kamaljit Marks MD
[2016-11-09] MEDS: MORPHINE IV PRN ×2 (17:35→21:09)
[2016-11-09] MEDS: VANCOMYCIN 2,300 MG in NS 500 ML IV SCH (18:15)
[2016-11-10] MEDS: MORPHINE IV PRN ×3 (01:38→22:40)
[2016-11-10] MEDS: DUONEB (A & A) INH PRN ×3 (03:06→23:10)
[2016-11-10 06:13] LABS: CALCIUM 8.8 mg/dL (8.8-10.2)
[2016-11-10] MEDS: ZOSYN 3.375 GM/NS 3.375 GM/50 ML IVPB IV SCH ×3 (07:01→20:06)
[2016-11-10] MEDS: PRILOSEC PO SCH (07:05)
[2016-11-10] MEDS: ASPIRIN EC PO SCH (10:22)
[2016-11-10] MEDS: TOPROL XL PO SCH (10:22)
--- NOTE | 2016-11-10 11:15 | Diag Imaging Result Doc PS360 ---
EXAM: CHEST-1 VIEW HISTORY: SOB TECHNIQUE: AP portable at 1040 COMMENT: There are sternotomy wires. There is been improvement in atelectasis present over the lateral left base since 11/08/2016. Otherwise there is been no significant change in the appearance of the chest. IMPRESSION: Improved left lower lobe atelectasis. Electronically signed by Dwight Martinez 11/10/2016 11:13 AM
--- NOTE | 2016-11-10 17:22 | PROGRESS NOTE ---
DATE: 11/10/2016 SUBJECTIVE: Patient is resting comfortably. No new complaints. His hemoptysis has improved also. He denies any abdominal pain, nausea, vomiting. He is tolerating diet well. OBJECTIVE: Vital signs: Temperature 99.5 degrees, pulse 81, breathing rate of 16, blood pressure 135/84. Abdomen: Is soft, nontender. Bowel sounds are audible. Extremities: No pedal edema noted. LABS: Reviewed. IMPRESSION: 1. Hemoptysis. 2. Left lower lobe pneumonia with possible abscess. 3. Abdominal pain with CT scan suggestive of cholelithiasis without cholecystitis. RECOMMENDATION: At this point, I do not think he needs to have any endoscopy right this moment. Encouraged him to follow up with us as outpatient, he is scheduled to have a PICC line placed tomorrow and discharged and in that case I will see him in the office and follow up. If he needs to have an endoscopy that can be done as an outpatient. cc: Mamadou Vegas MD
--- NOTE | 2016-11-10 17:30 | PROGRESS NOTE ---
DATE: 11/10/2016 SUBJECTIVE: This patient states that he is feeling good but he is still coughing up blood but compared with admission is much better. I already talked to Dr. Bazzi and we are planning to put a PICC line because this patient needs long-term antibiotics, also gastroenterology department evaluated this patient and they will follow this patient up as an outpatient. They are not planning to do any EGD or colonoscopy at this time. They are going to give him time to recover so they can reevaluate this patient and do an EGD or colonoscopy if this patient needs that. Pulmonary department is on board. OBJECTIVE: Vital Signs: Temperature 99.5 degrees, pulse 81, respiratory rate 16, blood pressure 135/84, O2 saturation 96 on room air. HEENT: Head normocephalic. No trauma. PERRLA. Neck: Supple. No JVD. No masses. Central trachea. Chest: Decreased breath sounds at the level of the left lower lung with rhonchi and rales. Abdomen: Soft, mild tenderness to palpation at the level of the right upper quadrant. Nondistended. Positive bowel sounds. Extremities: No edema. No clubbing. No cyanosis. Neurological: The patient is alert and oriented x3. No focal deficits. LABORATORY: Sodium 140, potassium 4, chloride 102, bicarbonate 27, BUN 16, creatinine 1.4, glucose 169, calcium 8.8. ASSESSMENT AND PLAN: 1. Left lower lobe pneumonia with possible abscess. Pulmonary Department, Infectious Disease Department are following this patient closely. As per Infectious Disease doctor this patient needs long-term antibiotics and he will get a PICC line tomorrow. 2. Hemoptysis. Likely secondary to #1. 3. Chest pain. Also this is likely related to his pneumonia. The troponins were negative. He is not complaining of atypical cardiac chest pain. 4. Right upper quadrant with noted cholelithiasis on CT but on ultrasound did not show any cholelithiasis. Gastroenterology is on board. I will continue to follow their recommendations. 5. History of coronary artery disease status post coronary artery bypass graft. Continue with the same medication and management. Cardiology department is following this patient. He is not having chest pain. 6. Hyperglycemia. Hemoglobin A1c is 6. I will continue with the same treatment for now. Likely this patient has prediabetes. The blood sugar has been stable. cc: Kamaljit Marks MD
[2016-11-10] MEDS: VANCOMYCIN 2,300 MG in NS 500 ML IV SCH (18:26)
[2016-11-10] MEDS: NITROGLYCERIN SL PRN (19:12)
[2016-11-10] MEDS: TESSALON PO PRN (20:06)
[2016-11-11] MEDS: ZOSYN 3.375 GM/NS 3.375 GM/50 ML IVPB IV SCH ×2 (03:50→09:53)
[2016-11-11] MEDS: PRILOSEC PO SCH ×2 (05:28→07:33)
[2016-11-11 06:23] LABS: MANUAL DIFF NEEDED? NO
[2016-11-11 06:53] LABS: BASO% 0.3 % (0.0-0.8); EOS# 0.32 X1000 (0.0-0.7); EOS% 3.6 % (0.0-10.0); HEMATOCRIT 38.1 % (42.0-52.0); HEMOGLOBIN 12.5 g/dL (14.0-18.0); IMM GRAN# 0.04 X1000 (0.0-0.04); IMM GRAN% 0.5 % (0.0-0.5); LYMPH# 1.21 X1000 (1.2-3.4); LYMPH% 13.7 % (20.5-51.1); MCH 29.3 PG (27-31); MCHC 32.8 g/dL (33-37); MCV 89.2 FL (81-99); MONO# 0.79 X1000 (0.11-0.59); MONO% 8.9 % (1.7-9.3); PLT 299 X1000 (130-400); RBC 4.27 XMIL (4.7-6.1)
[2016-11-11 06:57] LABS: CALCIUM 8.5 mg/dL (8.8-10.2); POTASSIUM 3.9 mmol/L (3.5-5.1)
[2016-11-11] MEDS: DUONEB (A & A) INH PRN ×5 (07:34→23:10)
--- NOTE | 2016-11-11 09:22 | PROGRESS NOTE ---
DATE: 11/11/2016 PRESENT ILLNESS: The patient is being treated for left lower lobe pneumonia which contained small abscesses. MEDICATIONS: This is the 6th day of treatment with the combination of vancomycin and Zosyn. PHYSICAL EXAMINATION: Vital Signs: Temperature is 98.8, pulse 81, respirations 18, blood pressure 133/88. General: This is a somewhat ill-appearing, middle-aged male who is in no acute distress. Lungs: I heard some rales in the left base. The right lung was clear. Cardiovascular: Heart rate was regular. Abdomen: Soft and nontender. Neurologic: Patient is alert. He can move his extremities. There is no tremor. LAB AND X-RAY: Chest x-ray today was read as showing improved left lower lobe atelectasis. Blood cultures are negative. Sputum grew normal gene. Creatinine is 1.4. GFR is 53. CBC shows a white count of 8830 hemoglobin 12.5 and platelet count 299,000. ASSESSMENT AND PLAN: The last time that we looked at the patient's pneumonia with radiographic studies, the plain x-ray did not show much, but a CT scan of the chest showed the presence of pneumonia and abscesses, therefore I plan to repeat the patient's CT scan. I have ordered it to be without IV contrast. If indeed the pneumonia and abscesses have cleared, then the patient will not need further antibiotics. If they are still there, then I think I would like to continue with IV antibiotics for the patient to take at home. Finally, if it has improved quite a bit, I think we could treat the patient with oral antibiotics. COMORBIDITIES: I was unable to find any definite comorbidity in this patient. cc: Rod Bazzi MD
[2016-11-11] MEDS: ASPIRIN EC PO SCH (09:53)
[2016-11-11] MEDS: TOPROL XL PO SCH (09:53)
--- NOTE | 2016-11-11 10:40 | Diag Imaging Result Doc PS360 ---
EXAM: CT THORAX W/O CONTRAST HISTORY: pneumonia, lung abscess TECHNIQUE: Dose reduction protocol COMPARISON: 11/05/2016 FINDINGS: There is a small left pleural effusion. This is slightly smaller than on the prior exam. Dense consolidated area in the left lower lobe remains. There are fewer cystic areas within and around this dense area compared to the prior study. The heart remains enlarged. The right lung remains clear except for minimal posterior atelectasis. Sternal wires are present. IMPRESSION: Persistent dense area in the left lower lobe with slight interval improvement. Electronically signed by Lonnie Godfrey 11/11/2016 10:37 AM
[2016-11-11 12:20] LABS: INR 1.09; PROTIME 11.5 Seconds (9.2-11.7)
[2016-11-11] MEDS ORDERED: NS 250 ML ONE (12:20)
[2016-11-11] MEDS: MAXIPIME 2 GM/NS 2 GM/100 ML IVPB IV SCH (13:20)
[2016-11-11] MEDS: MORPHINE IV PRN (14:47)
[2016-11-11] MEDS: TESSALON PO PRN (16:21)
--- NOTE | 2016-11-11 17:14 | PROGRESS NOTE ---
DATE: 11/11/2016 SUBJECTIVE: This patient states that he is feeling good. Dr. Bazzi evaluated this patient today and also we got a CT scan that showed a persistent dense area in the left lower lobe with slight interval improvement. The plan was to send this patient home with IV antibiotics but today it was not approved. I am not quite sure about the details between [facility] and the insurance company. Dr. Bazzi apparently has been notified about this. OBJECTIVE: Vital Signs: Temperature 98.6 degrees, pulse 88, respiratory rate 14, blood pressure 139/76. Oxygen saturation 96% on room air. HEENT: Head normocephalic. No trauma. PERRLA. Neck: Supple. No JVD. No masses. Central trachea. Chest: Decreased breath sounds at the level of the left lower lung with rhonchi and rales. Abdomen: Soft, mild tenderness to palpation at the left and right upper quadrant. Nondistended, positive bowel sounds. Extremities: No edema. No clubbing. No cyanosis. Neurological: The patient is alert and oriented x3. No focal deficits. LABORATORY DATA: WBC 8.8. Hemoglobin 12.5, hematocrit 38.1, platelets 299,000. Sodium 142, potassium 3.9, chloride 103, bicarbonate 28, BUN 17, creatinine 1.4, glucose 96. Calcium 8.5. ASSESSMENT AND PLAN: 1. Left lower lobe pneumonia with possible abscess. Pulmonary department, Infectious disease department are following this patient closely. The plan was to place a PICC line today and send this patient home with IV antibiotics. The social services technician is still working on this, we are waiting for the approval was of the insurance [employer] and [facility]. 2. Hemoptysis likely secondary to #1. 3. Chest pain likely related to his pneumonia. This is atypical chest pain, noncardiac related. 4. Right upper quadrant with noted cholelithiasis on CT scan but negative ultrasound. Gastroenterology on board. They will follow this patient as an outpatient. 5. History of coronary artery disease status post CABG. Continue with the same medication and management. Cardiology department is following this patient. He is not having chest pain now. 6. Hyperglycemia likely related to prediabetes. His hemoglobin A1c is 6. Continue with the same management. Blood sugar has been stable. PLAN: The plan was to send this patient today home with IV antibiotics. The social services technician is still trying to get approval from his insurance company and [facility]. Dr. Mays wants to see this patient next 11/19/2016, Dr. Bazzi wants to see this patient in 3 weeks. Once this patient is completely good, he can make an appointment with Dr. Vegas for possible upper endoscopy. cc: Kamaljit Marks MD
[2016-11-11] MEDS: VANCOMYCIN 2,300 MG in NS 500 ML IV SCH (17:49)
[2016-11-11] MEDS: TUSSIONEX LIQUID PO PRN (21:10)
[2016-11-12] MEDS: MAXIPIME 2 GM/NS 2 GM/100 ML IVPB IV SCH ×3 (01:10→23:31)
[2016-11-12] MEDS: MORPHINE IV PRN ×3 (01:17→21:49)
[2016-11-12] MEDS: DUONEB (A & A) INH PRN ×3 (03:56→11:26)
[2016-11-12 05:58] LABS: MANUAL DIFF NEEDED? NO
[2016-11-12 06:10] LABS: BASO% 0.3 % (0.0-0.8); EOS# 0.31 X1000 (0.0-0.7); EOS% 4.2 % (0.0-10.0); HEMATOCRIT 38.8 % (42.0-52.0); HEMOGLOBIN 12.6 g/dL (14.0-18.0); IMM GRAN# 0.03 X1000 (0.0-0.04); IMM GRAN% 0.4 % (0.0-0.5); LYMPH# 1.04 X1000 (1.2-3.4); LYMPH% 14.2 % (20.5-51.1); MCHC 32.5 g/dL (33-37); MCV 89.2 FL (81-99); MONO# 0.57 X1000 (0.11-0.59); MONO% 7.8 % (1.7-9.3); MPV 10.7 FL (7.4-10.4); NEUT% 73.1 % (42.2-75.2); PLT 294 X1000 (130-400); RBC 4.35 XMIL (4.7-6.1)
[2016-11-12 06:32] LABS: CALCIUM 8.2 mg/dL (8.8-10.2); POTASSIUM 4.4 mmol/L (3.5-5.1)
[2016-11-12] MEDS: PRILOSEC PO SCH (06:35)
[2016-11-12] MEDS: TOPROL XL PO SCH (09:13)
[2016-11-12] MEDS: ASPIRIN EC PO SCH (09:13)
--- NOTE | 2016-11-12 10:47 | PROGRESS NOTE ---
DATE: 11/12/2016 PRESENT ILLNESS: The patient is being treated for a left lower lobe pneumonia which contains small abscesses. MEDICATIONS: This is the 7th day of treatment with the combination of vancomycin and Zosyn. PHYSICAL EXAMINATION: Vital Signs: Temperature is 98.9 degrees, pulse 76, respirations 14, blood pressure 122/74. Generally: This is an obese, somewhat ill-appearing, middle-aged male. He is in no acute distress. Lungs: Clear to auscultation. Cardiovascular: Heart rate is regular. Abdomen: Soft and nontender. Extremities: Patient has a PICC in his right arm. The site is not erythematous or swollen. LAB AND X-RAY STUDIES: We have obtained a CT scan of the chest and it showed improvement in the left lower lobe infiltrate. The patient's CBC shows a white count of 7330, hemoglobin 12.6, and platelet count 294,000. Creatinine is 1.4. The GFR is 53. ASSESSMENT AND PLAN: Patient has pneumonia. My plan is to continue his vancomycin and cefepime at home. I will be then seeing the patient back in the office for a followup appointment at which time I will examine him and repeat the x-ray. Hopefully, it will soon be cleared and we can stop treating with his antibiotics. COMORBIDITIES: I was unable to find a definite comorbidity. cc: Rod Bazzi MD
--- NOTE | 2016-11-12 10:54 | PROGRESS NOTE ---
DATE: 11/12/2016 SUBJECTIVE: Mr. Doyle was admitted on 11/05/2016, followed by Dr. Mcginnis. He apparently does not have a primary care physician. He presented with chest pain and coughing up blood. PAST MEDICAL HISTORY: A 55-year-old with past medical history of hypertension, hyperlipidemia, coronary artery disease status post coronary artery bypass grafting, gastroesophageal reflux disease and seizure disorder. The seizure disorder is questionable as the patient states that he does not have any seizures. It is listed on his past medical chart. He states that he has migraine headaches. He presented emergency room with chest pain. Stated he had been coughing up blood since the day before and has a frequent substernal angina and has had coronary artery bypass grafting in April [address] Mcginnis. Previously a CT of his chest showed a left- sided cavitary lesion. The patient states that he has had surgical intervention in the left lung. Patient is a poor historian. Apparently, it had something to do with a pneumothorax. At any rate, he was admitted. Left lobe abscess versus cavitary lesion, could not rule out malignancy. Dr. Velazquez and Dr. Bazzi consulted questionable unstable angina. Dr. Mcginnis has been involved. Right upper quadrant pain with cholelithiasis on CT scan. He was put on IV antibiotic but today states he feels better. He still has a little bit of a cough and some pleuritic discomfort. PHYSICAL EXAMINATION: Vital Signs: Temperature 98.9 degrees, pulse 76, respirations 14, blood pressure 122/77. Lungs: Clear in all lung dejesus. Cardiovascular: Regular rhythm and rate without murmur or S3. Abdomen: Soft. Skin is warm and dry. Urine output over 5 L. LABORATORY DATA: White count 7330. Hematocrit 38, platelet count 294,000. Sodium 141, potassium 4.4, chloride 105, BUN 19, creatinine 1.4. ASSESSMENT AND PLAN: 1. Left lower lobe pneumonia which contains a small abscess. This is the 7th day of treatment with combination of vancomycin and Zosyn. Chest x-ray is showing improved left lower lobe atelectasis. Cultures are negative. Sputum grew normal gene. The plan is to repeat CT scan without IV contrast. If indeed the pneumonia and abscess have cleared, he will not need any further antibiotics. If there still is sign of infection, continue IV antibiotics at home so we await clinical progress. 2. CT of the chest done yesterday showed persistent density in the left lower lobe with slight interval improvement. Discussed with Dr. Bazzi. I suspect we will need to continue IV antibiotics. 3. Hemoptysis most likely secondary #1. 4. Chest pain likely related to pneumonia and atypical chest pain. Not cardiac. No sign of coronary ischemia at this time. 5. Right upper quadrant pain. Noted cholelithiasis on CT but negative ultrasound. 6. History of coronary artery disease status post coronary artery bypass grafting. Aware. 7. Hyperglycemia related to prediabetes. Hemoglobin A1c was 6. Encouraged low carbohydrate diet. I think the plan will likely be to set him up for IV antibiotics in hopes to get him home in the next couple of days. cc: Felipe De Guzman MD
--- NOTE | 2016-11-12 12:17 | PROGRESS NOTE ---
DATE: 11/11/2016 ADDENDUM REPORT: The patient had a CAT scan that shows some small improvement in his left lung infiltrate. My plan now is to get a PICC installed in the patient and send him home on vancomycin, and I have substituted cefepime for Zosyn. The vancomycin dose currently is 2300 mg IV every 24 hours and cefepime, which I just ordered, I have ordered at a dose of 2 g IV every 12 hours. I am requesting that the patient see me in the office 3 weeks from now. I put a consult in for [facility] to supply the patient's home IV antibiotic. cc: Rod Bazzi MD
[2016-11-12] MEDS: NITROGLYCERIN SL PRN (13:31)
[2016-11-12] MEDS: VANCOMYCIN 2,300 MG in NS 500 ML IV SCH (18:38)
[2016-11-13] MEDS: PRILOSEC PO SCH (06:13)
[2016-11-13] MEDS: DUONEB (A & A) INH PRN ×3 (08:03→19:00)
--- NOTE | 2016-11-13 08:48 | PROGRESS NOTE ---
DATE: 11/13/2016 SUBJECTIVE: Mr. Doyle is comfortable, awake. OBJECTIVE: Vital signs: Temp 99.1 degrees, pulse 83, respirations 14, blood pressure 122/75. HEENT: Pupils are equal, round. Lungs: Clear in all lung dejesus. Cardiovascular: Regular rhythm and rate without murmur or S3. Intake and output: Urine output 4 L. LAB: Reviewed from yesterday. White count 7,330, hematocrit was 38, platelet count 294,000. Chemistries unremarkable. Creatinine 1.4. ASSESSMENT AND PLAN: 1. Treated for left lower lobe pneumonia which contains small abscess. This is the 8th day of combination antibiotic of vancomycin and Zosyn. Plan is to continue vancomycin and cefepime at home. Dr. aBzzi will follow the patient as an outpatient. 2. CT of the chest showed persistently dense left lower lobe, slight interval improvement. 3. Hemoptysis, probably secondary to #1. 4. Atypical chest pain but no sign of coronary artery disease. 5. Right upper quadrant pain. Noted cholelithiasis on CT but ultrasound was negative. 6. History of coronary artery disease. Does not appear to have active coronary ischemia. 7. Hyperglycemia related to prediabetes. Hemoglobin A1c was 6. Continue present medications. Seems to be improving. 8. Review of orders. I do not see any change at this point. cc: Felipe De Guzman MD
[2016-11-13] MEDS: ASPIRIN EC PO SCH (08:53)
[2016-11-13] MEDS: TOPROL XL PO SCH (08:54)
--- NOTE | 2016-11-13 13:35 | PROGRESS NOTE ---
DATE: 11/13/2016 PRESENT ILLNESS: The patient is being treated for left lower lobe pneumonia which contains small abscesses. MEDICATIONS: This is day 8 of treatment with antibiotics. Currently, the patient is on vancomycin and cefepime. PHYSICAL EXAMINATION: Vital Signs: Temperature is 98.4 degrees, pulse 65, respirations 16, blood pressure 129/72. Lungs: Clear to auscultation. Cardiovascular: Heart rate is regular. Abdomen: Soft and nontender. General: The patient is obese. He seems to be comfortable at rest. He is not coughing or complaining of shortness of breath. LAB AND X-RAY: There is no new lab or x-ray today. ASSESSMENT AND PLAN: The plan is to continue the patient's antibiotics as an outpatient. He will be coming to the outpatient clinic for the following antibiotics: Vancomycin 2000 mg intravenous every 24 hours, Rocephin 2 g intravenous every 24 hours. I am going to write also for a complete blood count, creatinine and vancomycin trough level every Friday, and a creatinine every Friday and Friday. I will be seeing the patient in my office in 2 weeks, at which time we will repeat the x-ray and hopefully will be able to stop his antibiotics soon. COMORBIDITIES: I am unable to definitely find a comorbidity. cc: Rod Bazzi MD
--- NOTE | 2016-11-13 13:37 | PROGRESS NOTE ---
DATE: 11/13/2016 SUBJECTIVE: Patient is awake. He denies any significant complaints. He does still report some generalized abdominal discomfort. He is not able to eat much. He has been treated for left lower lobe pneumonia, abscess. He has been followed also by Dr. Bazzi. OBJECTIVE: Vital Signs: Temperature 98.4 degrees, pulse 65, respirations 16, blood pressure 129/72. DIAGNOSTIC RESULTS: Laboratory: Hematology - White count 7.33, hemoglobin 12.6 , hematocrit 38.8, MCV 89.2, platelets 294,000. Chemistry - Sodium 141, potassium 4.4, chloride 105, CO2 of 23, BUN 19, creatinine 1.4, glucose 104. ASSESSMENT: 1. Pneumonia with abscesses. 2. Abdominal pain. 3. Coronary artery disease. PLAN: Continue supportive care. Continue antibiotics per Dr. Bazzi. As far as Gastroenterology is concerned, we will follow with him as an outpatient for further gastrointestinal evaluation. If he continues to have symptoms, he may require an EGD. Recommended that he follow up with us in the office in 2-3 weeks after discharge and further plans will be made as needed. We will continue to follow during his hospital course as needed. I think there are plans for him to have outpatient IV antibiotics for his pneumonia/abscess and that is being arranged. Dictated by LORRIE Ballard for Mamadou Vegas MD cc: LORRIE Osborne MD [facility]
[2016-11-13] MEDS: MAXIPIME 2 GM/NS 2 GM/100 ML IVPB IV SCH ×2 (13:51→23:16)
[2016-11-13] MEDS: NITROGLYCERIN SL PRN (17:44)
[2016-11-13] MEDS: VANCOMYCIN 2,300 MG in NS 500 ML IV SCH (17:44)
[2016-11-14] MEDS: MORPHINE IV PRN (03:31)
[2016-11-14] MEDS: PRILOSEC PO SCH ×2 (05:25→05:59)
[2016-11-14] MEDS: TOPROL XL PO SCH (09:28)
[2016-11-14] MEDS: ASPIRIN EC PO SCH (09:28)
--- NOTE | 2016-11-14 09:52 | PROGRESS NOTE ---
DATE: 11/14/2016 PRESENT ILLNESS: The patient is receiving antibiotics for a left lower lung pneumonia, which has in it small abscesses. MEDICATIONS: This is day 9 of treatment with antibiotics. He currently is on vancomycin and cefepime. PHYSICAL EXAMINATION: Vital Signs: Temperature is 98.9 degrees, pulse 73, respirations 18, blood pressure 114/70. General: This is an obese middle-aged male, who is in no acute distress. Lungs: Clear to auscultation. Cardiovascular: Regular heart rate. Abdomen: Soft and nontender. Neurologic: Patient is awake. He can move his extremities. LAB AND X-RAY: There is no new lab or x-ray for today. ASSESSMENT AND PLAN: The patient has pneumonia. My plan is to continue his antibiotics until his return appointment for me in 2 weeks. COMORBIDITIES: I did not find any comorbidities in this patient. cc: Rod Bazzi MD
[2016-11-14] MEDS: MAXIPIME 2 GM/NS 2 GM/100 ML IVPB IV SCH (11:53)
[2016-11-14] MEDS: TYLENOL PO PRN (12:49)
--- NOTE | 2016-11-14 13:58 | DISCHARGE SUMMARY ---
ADMISSION DATE: 11/05/2016 DISCHARGE DATE: 11/14/2016 PRIMARY INTERIOR ASSEMBLIES INSTALLER: Dr. Mcginnis. Does not have a primary care provider. Presented with chest pain and coughing up blood. Mr. Doyle is a 55-year-old with a past medical history of hypertension, hyperlipidemia, and coronary artery disease status post coronary artery bypass grafting, gastroesophageal reflux disease and seizure disorder. It is questionable as the patient states he does not have seizures but this was on his old chart. States that he has migraines. Presented to the emergency room with chest pain. He stated that he had been coughing up blood since the day before. This was on 11/05/2016. He apparently has frequent substernal angina and since his coronary bypass graft in 2012 followed as an outpatient by Dr. Mcginnis who I believe saw him last week. CT scan was obtained in the emergency room. When compared to previous CTs showed a left cavitary lesion. The patient states that his surgical interventions of left long, unsure of the etiology. Again patient is a poor historian but believe that it may have had something to do with a pneumothorax in the past. At any rate, CT scan was compared to the 1 done 05/30/2016 showed consolidation of the left lower lobe associated with partially drowned left lower lobe basilar segments which contain multiple gas and fluid pockets within the parenchyma. [place] this could represent a pulmonary abscess. Noted to have fatty liver and cholelithiasis. On interview with the patient stated that on the top of the day substernal chest pain had been worse over the past 2 days and did include nausea and vomiting two days ago. He had right upper quadrant pain. He has been told his gallbladder is bad. Apparently he at some point seeking Cardiology permission to have his gallbladder removed. States that 2 weeks ago he had profound nausea and vomiting, filling up the entire waste basket. Also visit in the emergency room in May 2016. So review again of past medical history he has: 1. Hypertension. 2. Hyperlipidemia. 3. Coronary artery disease status post CABG 2012. 4. Gastroesophageal reflux disease. 5. Seizure disorder versus migraines. 6. Chronic pain. PREVIOUS SURGICAL HISTORY: Status post CABG and status post left lung lobectomy for unknown reason. So he was admitted for left lower lobe abscess versus cavitary lesion, unstable angina, right upper quadrant pain. Noted to have cholelithiasis on CAT scan. He was put on Zosyn 3.375 mg IV q.12. He also had some hyperglycemia and so he was diagnosed with diabetes. Put on pattern sugars. Dr. Mays was consulted on 11/05/2016 and he felt that this was a left lower lobe pneumonia, bronchiectasis possibly involving abscess. Dr. Vegas was consulted and Corrie Doyle saw him in consultation and felt that hemoptysis with abnormal CT of the chest, felt it was probably pulmonary in origin. Dr. Colon was consulted on 11/06 and he had been ruled out for cardiac infarction. Enzymes were negative. Echocardiogram was obtained and felt that we needed to pursue the pneumonia and potential abscess. Chest x-ray repeated on 11/08/2016 which was stable. Sternal wires are appreciated. There is scarring infiltrate in the left lower lung and pleural thickening versus effusion. Right lung was expanded and clear. Dr. Bazzi was consulted on 11/07 and he agreed to continue treating the patient with vancomycin and Zosyn and await on culture details. We did a CT of his chest on 11/11/2016 with persistent dense area in left lower lobe, slight interval improvement. [place] the patient was ready go home. He still is coughing up a little bit of blood. Breathing better and no pleuritic pain. The patient is receiving antibiotics for left lower lobe pneumonia with a small abscess. This is day 9 antibiotics and vancomycin and cefepime which is what he is currently on, vancomycin and cefepime. He will continue his antibiotics for another 2 weeks and this was set up. He has a PICC line. Microbiology revealed no growth from 11/05, 2 blood cultures and sputum culture was nonspecific with gram positive cocci. So will discharge home on 11/14/2016. Set up for him to get outpatient antibiotics per Dr. Bazzi for 2 weeks. DISCHARGE MEDICATIONS: Will be aspirin 81 mg a day, Tessalon Perles 200 mg p.o. t.i.d. p.r.n., and he will get his cefepime and his vancomycin for another 2 weeks. Vancomycin is 2.3 g q.24 hours and his cefepime is 2 g IV q.12 hours. He will be on Toprol-XL 100 mg daily. Prilosec 40 mg a day. cc: Felipe De Guzman MD
--- NOTE | 2016-11-14 16:34 | PROGRESS NOTE ---
DATE: 11/14/2016 ADDENDUM: The plan is to discharge the patient today. He will be going to [place] to get a daily infusions of vancomycin and Rocephin. I have asked the patient to see me in the office in 2 weeks. At that time, I will examine him and repeat his chest x-ray. cc: Rod Bazzi MD
[2016-11-14] MEDS: VANCOMYCIN 2,300 MG in NS 500 ML IV SCH (17:26)
[2016-11-14] MEDS: DUONEB (A & A) INH PRN (19:52)
[2016-11-14 20:02] VITALS: BP 126/76
--- NOTE | 2016-11-21 07:23 | PROVIDER DOCUMENTATION ---
This chart was entered by Leny Braswell Scribe, acting as scribe for Saleem Lepe MD. HPI-Chest Pain - General Chief Complaint: General Adult Stated Complaint: chest pain Time Seen by Provider: 11/05/16 00:27 Source: patient Allergies/Adverse Reactions: Patient Allergies Allergy/AdvReac Type Severity Reaction Status Date / Time No Known Allergies Allergy Verified 11/05/16 00:48 Home Medications: Home Medication List Medication Instructions Recorded Confirmed Last Taken Type Aspirin [Ecotrin] 81 mg PO BID 06/09/16 11/10/16 06/09/16 08:00 History Metoprolol Succinate E.r. [Toprol 100 mg PO DAILY 11/05/16 11/05/16 Unknown History Xl] Nitroglycerin 1 tab SL PRN PRN 11/05/16 11/05/16 Unknown History Aspirin EC 81 mg PO DAILY tablet 11/14/16 Unknown Rx Benzonatate [Tessalon] 200 mg PO TID PRN PRN #60 capsule 11/14/16 Unknown Rx - History of Present Illness-CP Nature of Presenting Problem: Pt is a 55 year old male who came to the ED with a cc of chest pain and coughing up blood all day. Pt reports he took nitro three times today. Pt has a hx of heart attacks. Location: reports: central Chest Pain Radiation: reports: no radiation Quality of Pain: reports: sharp Severity in ED: mild Onset/Duration: this morning Timing: still present Context/Activities at Onset: reports: none Modifying Factors: improves with: nothing Associated Symptoms: reports: denies symptoms Nitro Today/Relief: provided at home Aspirin Treatment Today: unknown Prior Chest Pain/Cardiac Workup: reports: heart attack Similar Symptoms Previously?: Yes Recently Seen Here or By Another Healthcare Provider: Yes Review of Systems - Adult - REVIEW OF SYSTEMS - ADULT Constitutional: denies: chills, fever Eyes: reports: no symptoms reported Ears, Nose, Mouth & Throat: reports: no symptoms reported Cardiovascular: reports: chest pain. denies: heart murmur, orthopnea Respiratory: reports: cough, hemoptysis. denies: pleurisy, shortness of breath , wheezing Gastrointestinal: denies: abdominal pain, diarrhea, nausea, vomiting Genitourinary: reports: no symptoms reported Musculoskeletal: reports: no symptoms reported Integumentary: reports: no symptoms reported Neurological: reports: no symptoms reported Psychiatric: reports: no symptoms reported Endocrine: reports: no symptoms reported Hematologic/Lymphatic: reports: no symptoms reported Allergic/Immunologic: reports: no symptoms reported All Other Systems: Reviewed and Negative Past History - Adult - PAST MEDICAL HISTORY-ADULT Review of Records: reports: Nursing Assessment Review Major Childhood Illnesses: reports: denies history Cardiovascular: reports: CAD, HTN, hyperlipidemia Respiratory: reports: denies history Gastrointestinal: reports: GERD Obstetrical/Gynecological: reports: denies history Genitourinary: reports: denies history Musculoskeletal: reports: denies history 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 Endocrine/Immune: reports: denies history Other Conditions: reports: denies history - PRIOR SURGERIES/PROCEDURES Surgical/Procedure History: reports: CABG, other (blockages x 9 /left lung lobectomy) - IMMUNIZATION STATUS Childhood Immunizations: See Nurse Assessment Flu Vaccine: See Nurse Assessment - FAMILY HISTORY Family History: reviewed, not pertinent Physical Exam-General - PHYSICAL EXAM-ADULT Initial Vital Signs Reviewed: Yes - CONSTITUTIONAL General Appearance: alert, no apparent distress - EYES Eyes: PERRL/EOMI, pink conjunctivae - HEAD, EARS, NOSE, MOUTH & THROAT HENMT: normocephalic/atraumatic, moist mucous membranes, normal ENT inspection - NECK Neck: supple, normal inspection - RESPIRATORY Respiratory: chest non-tender, lungs clear, normal breath sounds - CARDIOVASCULAR Cardiovascular: normal peripheral pulses, regular rate, rhythm, no edema - GASTROINTESTINAL (ABDOMEN) Abdominal Exam: normal bowel sounds, non tender, soft - LYMPHATIC Lymphatic: no adenopathy - MUSCULOSKELETAL Back Exam: normal inspection, no CVA tenderness, no vertebral tenderness Extremity: normal range of motion, non-tender - SKIN Integumentary: normal color, normal turgor, warm/dry - NEUROLOGIC Neurologic: grossly normal, no motor/sensory deficits - PSYCHIATRIC Psych/Mental Status: normal mood/affect, normal thought content, normal thought process, oriented x 3 Progress - PLAN OF CARE/RESULTS Progress/Plan/Lab Results: Orders Category Date Time Status Admit - [facility] Routine AdmDCTranf 11/05/16 04:31 Ordered Apply Mechanical Device [QM] ORDERED Care 11/05/16 04:31 Active Cardiac Monitoring DIRECTED Care 11/05/16 00:40 Completed Notify MD if DIRECTED Care 11/05/16 04:31 Active Nursing- MD Consult Request [id number] Care 11/05/16 04:31 Completed Saline Loc NOW Care 11/05/16 00:40 Completed Z-Document. for Tele Applied ORDERED Care 11/05/16 04:31 Completed Physician/Provider Consults Routine Cons 11/05/16 08:00 Ordered Physician/Provider Consults Routine Cons 11/05/16 08:00 Ordered Physician/Provider Consults Routine Cons 11/06/16 08:00 Ordered NPO Diet 11/05/16 04:18 Completed CHEST-2 VIEWS [RAD] Stat Exams 11/05/16 00:[address] THORAX W/CONTRAST [CT] Stat Exams 11/05/16 01:25 Completed US GB < RUQ (LIMITED) [US] Routine Exams 11/05/16 08:00 Completed BASIC METABOLIC PANEL [CHEM] Routine Lab 11/06/16 04:48 Completed CBC WITH ELECTRONIC DIFF [HEME] Routine Lab 11/06/16 04:48 Completed CBC WITH ELECTRONIC DIFF [HEME] Stat Lab 11/05/16 00:24 Completed CEA Stat Lab 11/05/16 00:24 Completed CK PROFILE [SP CHEM] Q8H Lab 11/05/16 06:02 Completed CK PROFILE [SP CHEM] Q8H Lab 11/05/16 12:18 Completed CK PROFILE [SP CHEM] Q8H Lab 11/05/16 20:05 Completed CK PROFILE [SP CHEM] Stat Lab 11/05/16 00:24 Completed COMPREHENSIVE METABOLIC PANEL [CHEM] Stat Lab 11/05/16 00:24 Completed D-DIMER [CHEM] Stat Lab 11/05/16 00:24 Completed LIPID PROFILE W/CALC LDL [LIPIDS] Routine Lab 11/05/16 06:02 Completed MAGNESIUM [CHEM] Stat Lab 11/05/16 00:24 Completed PRO B-NATRIURETIC PEPTIDE Stat Lab 11/05/16 00:24 Completed PROTIME WITH INR [COAG] Stat Lab 11/05/16 00:24 Completed PTT [COAG] Stat Lab 11/05/16 00:24 Completed TROPONIN T Q8H Lab 11/05/16 06:02 Completed TROPONIN T Q8H Lab 11/05/16 12:18 Completed TROPONIN T Q8H Lab 11/05/16 20:05 Completed TROPONIN T Stat Lab 11/05/16 00:24 Completed Acetaminophen [Tylenol] Med 11/05/16 04:31 Discontinued 650 mg PO Q6H PRN PRN Aspirin EC Med 11/05/16 09:00 Discontinued 81 mg PO DAILY Metoprolol Succinate E.r. [Toprol Xl] Med 11/05/16 09:00 Discontinued 100 mg PO DAILY Nitroglycerin Sl [Nitroglycerin] Med 11/05/16 04:31 Discontinued 0.4 mg SL Q5M PRN PRN Ondansetron [Zofran] Med 11/05/16 04:31 Discontinued 4 mg IV Q4H PRN PRN Piperacil/Tazobact 3.375 gm/Ns [Zosyn 3.375 gm/Ns] Med 11/05/16 05:00 Discontinued 3.375 gm in 50 ml IV Q6H Oxygen Device Routine Oth 11/05/16 04:31 Completed Telemetry [OM.EQ] Routine Oth 11/05/16 04:31 Active EKG [EKG] Routine Ther 11/05/16 08:00 Draft Transfer/Admit Order [TRANSFER] Routine Transfer 11/05/16 04:17 Completed Result Diagrams: 11/12/16 05:32 11/14/16 10:40 Departure - Departure Date of Disposition Decision: 11/05/16 Time of Disposition Decision: 04:27 DIAGNOSIS: Hemoptysis Disposition: ADMITTED INPATIENT 09 Certified Medical Emergency: Emergent Condition: Stable - Critical Care Note This patient required my direct & personal management of CC.: No This chart was documented by the indicated scribe, (Leny Braswell Scribe) and accurately reflects the services I performed and decisions made by me, Saleem Lepe MD, as attested by the provider's signature.
== END 2016-11-14 20:34 | disposition home health service (06) ==
LOC: ED 00:23 → EDIPHOLD 04:27 → SUATTDRO 04:27 → 3S 04:56 → 4N 11-08 10:17
PROVIDERS: ATTEND Emergency Medicine

== ENCOUNTER 2017-01-06 15:24 | Inpatient (IN) ==
[2017-01-06 17:12] LABS: MANUAL DIFF NEEDED? NO
[2017-01-06 17:21] LABS: BASO% 0.2 % (0.0-0.8); EOS# 0.27 X1000 (0.0-0.7); EOS% 2.9 % (0.0-10.0); HEMATOCRIT 40.1 % (42.0-52.0); HEMOGLOBIN 13.5 g/dL (14.0-18.0); IMM GRAN# 0.03 X1000 (0.0-0.04); IMM GRAN% 0.3 % (0.0-0.5); LYMPH# 2.91 X1000 (1.2-3.4); LYMPH% 31.3 % (20.5-51.1); MCH 28.4 PG (27-31); MCHC 33.7 g/dL (33-37); MCV 84.4 FL (81-99); MONO# 0.69 X1000 (0.11-0.59); MONO% 7.4 % (1.7-9.3); NEUT% 57.9 % (42.2-75.2); PLT 263 X1000 (130-400); RBC 4.75 XMIL (4.7-6.1)
[2017-01-06] MEDS ORDERED: ZOFRAN ONE (17:47)
[2017-01-06] MEDS ORDERED: ZOFRAN IV ONE (17:51)
[2017-01-06 18:00] LABS: ALBUMIN 3.9 g/dL (3.5-5.0); CALCIUM 9.2 mg/dL (8.8-10.2); POTASSIUM 3.9 mmol/L (3.5-5.1); TOTAL BILIRUBIN 0.33 mg/dL (0.20-1.00); TOTAL PROTEIN 6.9 g/dL (6.3-8.3)
[2017-01-06] MEDS ORDERED: MORPHINE IV ONE (18:00)
--- NOTE | 2017-01-06 18:41 | Diag Imaging Result Doc PS360 ---
EXAM: CT ABD/PELVIS W/ IV CONT ONLY HISTORY: diffuse abd pain/ rigidity TECHNIQUE: CT of the abdomen and pelvis with intravenous contrast and dose reduction (clarity.) COMMENT: There is cystic change in the left lower lobe which has not changed significantly since the previous examination of 06/09/2016. 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 There is been sternotomy. There is no evidence of abdominal aortic aneurysm. There is some atherosclerotic changes particularly at the left common iliac artery. The renal and mesenteric arteries are apparently stable and patent compared to the previous study of 06/09/2016. There is fatty change in the liver which was also present previously. There are numerous small calcified gallstones in the gallbladder. These appear larger than they did on the previous study. The adrenal glands spleen and pancreas are unremarkable. There is no evidence of hydronephrosis or mass in the kidneys. There is diverticulosis coli.. There is no evidence of bowel obstruction. The appendix is normal in appearance. Pelvis: There is diverticulosis throughout the sigmoid colon. There is no evidence of active diverticulitis. No free fluid is present. There is no evidence of significant adenopathy. There is ankylosis of the sacroiliac joints. There is degenerative disc and facet disease in the lower lumbar spine. IMPRESSION: Cholelithiasis. Hepatic steatosis. Diverticulosis coli. Electronically signed by Dwight Martinez 01/06/2017 6:38 PM
--- NOTE | 2017-01-06 19:38 | PROVIDER DOCUMENTATION ---
This chart was entered by Alissa Diehl Scribe, acting as scribe for Humberto Woodruff MD. HPI-Abdominal Pain/GI Problem - General Chief Complaint: Abdominal Pain Stated Complaint: ABD PAIN Time Seen by Provider: 01/06/17 15:45 Source: patient Allergies/Adverse Reactions: Patient Allergies Allergy/AdvReac Type Severity Reaction Status Date / Time No Known Allergies Allergy Verified 01/06/17 16:47 Home Medications: Home Medication List Medication Instructions Recorded Confirmed Last Taken Type Metoprolol Succinate E.r. [Toprol 100 mg PO DAILY 11/05/16 01/06/17 01/06/17 History Xl] Nitroglycerin 1 tab SL PRN PRN 11/05/16 01/06/17 01/06/17 16:30 History Aspirin EC 81 mg PO DAILY tablet 11/14/16 01/06/17 01/06/17 Rx Clopidogrel Bisulfate [Clopidogrel] 75 mg PO DAILY 11/22/16 01/06/17 01/06/17 History - History of Present Illness-ABD Nature of Presenting Problems: 56 year-old male with PMH CABG, cavitary PNA recently completed his abx course by PICC line, recent chest pain on 12/24/16, presents to the ER with abdominal pain and left sided chest pain that began on 01/05/17. [place]. He reports that the pain sharp 10/10 radiates from the lower abd to the RUQ and the left chest , up his left chest wall and into his left flank. He has had nausea, but no vomiting, diarrhea or constipation. Denies fever, chills, recent traveling, sick contact Abdominal Pain Onset Location: reports: generalized abdomen Pain Radiation: reports: flank (Left), chest (left), other (left side chest pain ) Quality of Pain: reports: sharp, tightness Severity in ED: reports: severe Onset/Duration: reports: 24 hours ago Timing: reports: still present, getting worse Activities at Onset: reports: light activity Modifying Factors: improves with: nothing Associated Symptoms: reports: chest pain, nausea. denies: arm pain, constipation, cough, diarrhea, fever/chills, muscle aches, swelling/mass in abdomen, vomiting, weakness Last BM: this morning Dark Stools Present?: reports: none noticed Rectal Bleeding: reports: none Rectal Pain: reports: none Emesis Description: reports: none Bruising or Bleeding Gums?: No Similar Symptoms Previously?: Yes Recently seen or treated by another doctor?: Yes (12/24/16 treated in hospital for chest pain. ) Review of Systems - Adult - REVIEW OF SYSTEMS - ADULT Constitutional: reports: no symptoms reported, see HPI Eyes: reports: no symptoms reported, see HPI Ears, Nose, Mouth & Throat: reports: no symptoms reported, see HPI Cardiovascular: reports: see HPI, chest pain (Left sided). denies: edema, palpitations, syncope Respiratory: reports: no symptoms reported, see HPI. denies: cough, shortness of breath Gastrointestinal: reports: see HPI, abdominal pain, nausea. denies: constipation, diarrhea, rectal bleeding, vomiting Genitourinary: reports: no symptoms reported, see HPI Musculoskeletal: reports: no symptoms reported, see HPI Integumentary: reports: no symptoms reported, see HPI Neurological: reports: no symptoms reported, see HPI Psychiatric: reports: no symptoms reported, see HPI Endocrine: reports: no symptoms reported, see HPI Hematologic/Lymphatic: reports: no symptoms reported, see HPI Allergic/Immunologic: reports: no symptoms reported, see HPI All Other Systems: Reviewed and Negative Past History - Adult - PAST MEDICAL HISTORY-ADULT Review of Records: reports: Old Records Reviewed, Nursing Assessment Review, Medications Reviewed, Social history reviewed & non-contributory. Cardiovascular: reports: cardiac disease, CAD, HTN, hyperlipidemia Respiratory: reports: pneumonia Gastrointestinal: reports: cholelithiasis, GERD 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 Psychiatric: reports: denies history - PRIOR SURGERIES/PROCEDURES Surgical/Procedure History: reports: CABG, other (blockages x 9 /left lung lobectomy) - IMMUNIZATION STATUS Childhood Immunizations: See Nurse Assessment Flu Vaccine: See Nurse Assessment - FAMILY HISTORY Family History: reviewed, not pertinent - SOCIAL HISTORY Smoking: non-smoker Substance Use: none/never Alcohol Use Frequency: never Physical Exam-General - PHYSICAL EXAM-ADULT Initial Vital Signs Reviewed: Yes - CONSTITUTIONAL General Appearance: alert, no apparent distress, other (Uncomfortable in appearance.) - EYES Eyes: PERRL/EOMI. negative: pink conjunctivae, EOM palsy, subconjunctival hemorrhage, sunken eyes - HEAD, EARS, NOSE, MOUTH & THROAT HENMT: normocephalic/atraumatic, moist mucous membranes - NECK Neck: non-tender, full range of motion - RESPIRATORY Respiratory: chest non-tender, lungs clear, normal breath sounds. negative: decreased breath sounds, wheezing - CARDIOVASCULAR Cardiovascular: normal peripheral pulses, regular rate, rhythm, no edema, no murmur - GASTROINTESTINAL (ABDOMEN) Abdominal Exam: normal bowel sounds, tenderness (Diffuse, mild tenderness to palpation.). negative: distended, guarding - LYMPHATIC Lymphatic: no adenopathy - MUSCULOSKELETAL Back Exam: no CVA tenderness, other (Left flank is tender to palpation.) Extremity: normal range of motion, non-tender. negative: calf tenderness, erythema, swelling, tenderness - SKIN Integumentary: normal color, warm/dry, warm. negative: diaphoresis, rash, swelling - NEUROLOGIC Neurologic: electrophonic engineer II-XII nml as tested, grossly normal, no motor/sensory deficits - PSYCHIATRIC Psych/Mental Status: normal mood/affect, normal thought content, normal thought process, oriented x 3 Progress - PLAN OF CARE/RESULTS Progress/Plan/Lab Results: Vital Signs - 8 hr 01/06/17 15:38 Temperature 98.5 F Pulse Rate 88 Respiratory Rate 18 Blood Pressure 183/127 O2 Sat by Pulse Oximetry 100 Result Diagrams: 01/06/17 16:56 01/06/17 16:56 - EKG 1 Time of EKG reading by physician:: 17:03 EKG Read and Signed by:: Anuj Gee EKG Interpretation (*Must complete 3 of following elements*): Abnormal (NSR. RBBB. Left anterior fascicular block. Bifasicular block. Possible lateral infarct, age undetermined. Cannot rule out Inferior infarct (masked by fascicular block?), age undetermined.) Rate: 68 [place]: normal (PRT axis 58 -88 -36.) QRS: normal (QRS duration 124 ms.) PA Interval: normal (PA interval 122 ms.) Departure - Departure Date of Disposition Decision: 01/06/17 Time of Disposition Decision: 19:36 DIAGNOSIS: Atypical chest pain, Intractable lower abdominal pain Disposition: ADMITTED INPATIENT 09 Certified Medical Emergency: Emergent Condition: Stable Referrals and Follow-Ups: None,PCP [Primary Care Provider] - - Critical Care Note This patient required my direct & personal management of CC.: No Attestation - Physician/ NANDO Attestation Patient care was provided by Advanced Practice Provider:: No The physician spent face to face time with patient:: Yes Advanced Practice Provider documentation review:: Supervising physician onsite and consulted in the evaluation and care of this patient. The physician did have a face to face encounter with the patient. This chart was documented by the indicated scribe, (Alissa Diehl, Justiniblissa) and accurately reflects the services I performed and decisions made by me, Humberto Woodruff MD, as attested by the provider's signature.
[2017-01-06] MEDS ORDERED: DILAUDID IV ONE (20:33)
[2017-01-06] MEDS: DILAUDID IV ONE ×2 (20:47→21:00)
[2017-01-06] MEDS ORDERED: MORPHINE IV PRN (20:52)
[2017-01-06 21:08] LABS: UR AMPHETAMINES MT NONE DETECTED (NONE DETECT); UR BARBITUATES MT NONE DETECTED (NONE DETECT); UR BENZODIAZ MT NONE DETECTED (NONE DETECT); UR CANNABIS MEDTOX NONE DETECTED (NONE DETECT); UR COCAINE MT NONE DETECTED (NONE DETECT); UR METHADONE MEDTOX NONE DETECTED (NONE DETECT); UR OPIATES MT PRESUMPTIVE POS (NONE DETECT); UR OXYCODONE MEDTOX NONE DETECTED (NONE DETECT); UR PCP MEDTOX NONE DETECTED (NONE DETECT)
[2017-01-06] MEDS ORDERED: NS 1,000 ML IV ONE (21:34)
--- NOTE | 2017-01-06 22:14 | Diag Imaging Result Doc PS360 ---
EXAM: TEMPORARY HISTORY: Chest pain TECHNIQUE: PA and lateral COMMENT: There are fibrotic changes in the left mid and lower lobe. Inspiration is less optimal than on 12/24/2016. Otherwise has been no significant change. IMPRESSION: Fibrosis. No evidence of acute disease. Electronically signed by Dwight Martinez 01/06/2017 8:58 PM
[2017-01-06] MEDS: HEPARIN SUBQ SCH (22:50)
[2017-01-06] MEDS: NS 1,000 ML IV SCH (22:50)
[2017-01-06] MEDS: ZOFRAN IV PRN (22:50)
[2017-01-06 22:54] LABS: AGAP 17; BUN 14 mg/dL (8-22); CALCIUM 9.1 mg/dL (8.8-10.2); CHLORIDE 100 mmol/L (98-107); COSMO 283; POTASSIUM 4.3 mmol/L (3.5-5.1); SODIUM 140 mmol/L (136-145); TCO2 23 mmol/L (25-35)
[2017-01-07] MEDS: ZOFRAN IV PRN ×2 (01:55→06:44)
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
[2017-01-07] MEDS: NITROGLYCERIN SL PRN ×5 (05:37→18:40)
[2017-01-07] MEDS: MORPHINE IV PRN ×2 (06:44→12:17)
[2017-01-07 06:48] LABS: HDL 70 mg/dL (35-55); LDL 131 mg/dL; TRIGLYCERIDES 124 mg/dL (39-160); VLDL 25 mg/dL
[2017-01-07] MEDS ORDERED: PRILOSEC PO SCH (07:00)
[2017-01-07] MEDS: TOPROL XL PO SCH (09:22)
[2017-01-07] MEDS: ASPIRIN PO SCH (09:22)
[2017-01-07] MEDS: PLAVIX PO SCH (09:22)
[2017-01-07] MEDS: HEPARIN SUBQ SCH ×2 (09:23→20:54)
[2017-01-07] MEDS: TYLENOL PO PRN ×2 (09:23→20:53)
[2017-01-07] MEDS: PROTONIX IV SCH ×3 (12:17→22:18)
[2017-01-07] MEDS: LEVAQUIN 500 MG/D5W 500 MG/100 ML IVPB IV SCH (15:21)
[2017-01-07] MEDS: NS 1,000 ML IV SCH ×3 (15:28→22:18)
--- NOTE | 2017-01-07 19:34 | PROGRESS NOTE ---
DATE: 01/07/2017 SUBJECTIVE: The patient complains of abdominal pain. No focal neurologic deficits noted. He denies any nausea or vomiting. OBJECTIVE: Vital Signs: Temperature 98.2, blood pressure 121/86, heart rate 85, respirations 16, O2 saturation 100% on 2 L nasal cannula. General: This is a morbidly obese male, lying in bed in no acute distress. Head: Normocephalic, atraumatic. Heart: S1, S2 normal. Regular rate and rhythm. Lungs: Clear to auscultation bilaterally. Abdomen: Positive bowel sounds. Soft, obese, nontender, nondistended. Extremities: No edema. No cyanosis. No calf tenderness. Neurologic: The patient is alert and oriented x3. LAB: None. ASSESSMENT AND PLAN: 1. Abdominal pain. The patient had a CT of the abdomen and pelvis done that revealed cholelithiasis and hepatic steatosis. The patient had an abdominal ultrasound done back in October that revealed stable hepatic steatosis. We will consult GI for further recommendations. The patient will be started on IV Protonix. 2. Chest pain. The patient's cardiac enzymes are negative and the patient had a stress test done 2 weeks ago that did not reveal any significant changes. Will continue to monitor the patient closely. 3. Hypertension. Continue on Toprol-XL. 4. Deep vein thrombosis prophylaxis. Continue on heparin. cc: Nora Cortez MD
[2017-01-07] MEDS: SODIUM CHLORIDE 0.9% INJ SCH (20:54)
[2017-01-07] MEDS: FLAGYL 500 MG/NS 500 MG/100 ML IVPB IV SCH (20:54)
[2017-01-08] MEDS: FLAGYL 500 MG/NS 500 MG/100 ML IVPB IV SCH ×3 (04:33→20:54)
[2017-01-08 05:51] LABS: HEMATOCRIT 36.3 % (42.0-52.0); HEMOGLOBIN 11.9 g/dL (14.0-18.0); MCH 28.8 PG (27-31); MCHC 32.8 g/dL (33-37); MCV 87.9 FL (81-99); MPV 10.5 FL (7.4-10.4); RBC 4.13 XMIL (4.7-6.1)
[2017-01-08 06:17] LABS: AGAP 13; ALBUMIN 3.2 g/dL (3.5-5.0); ALKALINE PHOSPHATASE 53 U/L (32-122); BUN 14 mg/dL (8-22); CALCIUM 7.9 mg/dL (8.8-10.2); CHLORIDE 103 mmol/L (98-107); COSMO 284; GOT 13 U/L (10-34); GPT 21 U/L (10-44); POTASSIUM 4.1 mmol/L (3.5-5.1); SODIUM 142 mmol/L (136-145); TCO2 26 mmol/L (25-35); TOTAL BILIRUBIN 0.66 mg/dL (0.20-1.00); TOTAL PROTEIN 5.9 g/dL (6.3-8.3)
[2017-01-08] MEDS: ASPIRIN PO SCH (10:21)
[2017-01-08] MEDS: TOPROL XL PO SCH (10:21)
[2017-01-08] MEDS: HEPARIN SUBQ SCH ×2 (10:21→20:48)
[2017-01-08] MEDS: PLAVIX PO SCH (10:21)
[2017-01-08] MEDS: PROTONIX IV SCH ×2 (10:24→20:55)
[2017-01-08] MEDS: SODIUM CHLORIDE 0.9% INJ SCH (10:24)
[2017-01-08] MEDS: TYLENOL PO PRN ×2 (10:38→20:48)
[2017-01-08] MEDS: NS 1,000 ML IV SCH ×2 (13:32→13:56)
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
[2017-01-08] MEDS: LEVAQUIN 500 MG/D5W 500 MG/100 ML IVPB IV SCH (15:29)
--- NOTE | 2017-01-08 17:19 | PROGRESS NOTE ---
DATE: 01/08/2017 SUBJECTIVE: The patient complains of continued lower abdominal pain. He denies any nausea. He was able to tolerate a clear liquid diet. OBJECTIVE: Vital Signs: Temperature 97 degrees, blood pressure 142/79, heart rate 71, respirations 16, O2 saturation is 98% on room air. General: This is an elderly male, sitting at the edge of the bed, in no acute distress. Head: Normocephalic, atraumatic. Heart: S1, S2. Normal. Regular rate and rhythm. Lungs: Clear to auscultation bilaterally. No wheezes. No rales. No rhonchi. Abdomen: Positive bowel sounds. Soft, nontender, nondistended. Extremities: No edema. No cyanosis. No calf tenderness. Neurologic: The patient is alert and oriented x3. LABS: White blood cell count 9.2, hemoglobin 11, hematocrit 36, platelets 192,000. Sodium 142, potassium 4.1, chloride 103, CO2 26, BUN 14, creatinine 1, glucose 97. ASSESSMENT AND PLAN: 1. Abdominal pain. The patient is scheduled to undergo a HIDA scan as well as endoscopy tomorrow. Will continue with IV antibiotics and gentle IV fluid hydration. 2. Coronary artery disease with a history of coronary artery bypass graft. Continue on the current cardiac medications. 3. Obesity. Aware. 4. Deep vein thrombosis prophylaxis. Continue with SCDs. cc: Nora Cortez MD
[2017-01-08] MEDS: MORPHINE IV PRN (20:47)
[2017-01-09] MEDS: PROTONIX IV SCH ×2 (01:39→10:29)
[2017-01-09] MEDS: FLAGYL 500 MG/NS 500 MG/100 ML IVPB IV SCH ×2 (05:12→12:59)
[2017-01-09 06:57] LABS: HEMATOCRIT 36.1 % (42.0-52.0); HEMOGLOBIN 11.7 g/dL (14.0-18.0); MCH 28.8 PG (27-31); MCHC 32.4 g/dL (33-37); MCV 88.9 FL (81-99); MPV 10.9 FL (7.4-10.4); RBC 4.06 XMIL (4.7-6.1)
[2017-01-09 07:28] LABS: AGAP 14; BUN 11 mg/dL (8-22); CALCIUM 8.2 mg/dL (8.8-10.2); CHLORIDE 104 mmol/L (98-107); COSMO 276; SODIUM 139 mmol/L (136-145); TCO2 21 mmol/L (25-35)
[2017-01-09] MEDS: SODIUM CHLORIDE 0.9% INJ SCH (10:29)
[2017-01-09] MEDS: ASPIRIN PO SCH ×2 (10:42→14:45)
[2017-01-09] MEDS: HEPARIN SUBQ SCH ×2 (10:43→21:32)
[2017-01-09] MEDS: TOPROL XL PO SCH (10:43)
[2017-01-09] MEDS: PLAVIX PO SCH ×2 (10:43→14:45)
[2017-01-09] MEDS: MORPHINE IV PRN ×2 (11:00→22:29)
[2017-01-09] MEDS ORDERED: DIPRIVAN 1% ONE (13:36)
[2017-01-09] MEDS ORDERED: FENTANYL ONE (13:39)
[2017-01-09] MEDS: LEVAQUIN 500 MG/D5W 500 MG/100 ML IVPB IV SCH (14:45)
--- NOTE | 2017-01-09 15:31 | PROGRESS NOTE ---
DATE: 01/09/2017 SUBJECTIVE: No acute events noted overnight. The patient had a HIDA scan today and is scheduled for endoscopy. OBJECTIVE: Vital Signs: Temperature 98 degrees, blood pressure 121/78, heart rate 68, respirations 16, O2 saturation is 100% on room air. General: This is an overweight male, lying in bed, in no acute distress. Head: Normocephalic, atraumatic. Heart: S1, S2. Normal. Regular rate and rhythm. Lungs: Clear to auscultation bilaterally. No crackles. No rales. Abdomen: Positive bowel sounds. Soft, obese, nontender, nondistended. Extremities: No edema. No cyanosis. LABS: White blood cell count 5.8, hemoglobin 11, hematocrit 36, platelets 187,000. Sodium 139, potassium 4, chloride 104, CO2 21, BUN 11, creatinine 1, glucose 81. ASSESSMENT AND PLAN: 1. Abdominal pain. The patient is scheduled for endoscopy today and a HIDA scan. We will await the results of these studies. 2. Coronary artery disease status post coronary artery bypass graft. Aware. Continue on the current cardiac medications. 3. Obesity. Aware. 4. Deep vein thrombosis prophylaxis. Continue on heparin. cc: Nora Cortez MD
--- NOTE | 2017-01-09 16:21 | Diag Imaging Result Doc PS360 ---
HIDA SCAN W/ EJECTION FRACTION - 01/09/2017 INDICATION: gallstones COMPARISON: CT from 01/06/2017 FINDINGS: 5.8 millicuries of Choletec was administered. There is normal uptake and clearance by the liver. There is normal excretion into the gallbladder and small bowel. A fatty meal was given. The gallbladder ejection fraction is 13%. IMPRESSION: Subnormal gallbladder ejection fraction compatible with chronic cholecystitis or biliary dyskinesia. The presence of gallstones strongly suggests chronic cholecystitis is the reason. An abnormally low ejection fraction (less than 35%) can be present in patients without gallbladder dyskinesis or chronic cholelithiasis to have other medical conditions. These include but are not limited to, patients with diabetic mellitus, irritable bowel syndrome, , gastroenteritis. peptic ulcer disease, and patients receiving morphine or nifedipine. Electronically signed by Mickey Hilton 01/09/2017 4:19 PM
[2017-01-09] MEDS: ZOFRAN IV PRN (17:05)
--- NOTE | 2017-01-09 17:30 | OPERATIVE NOTE ---
PROCEDURE DATE: 01/09/2017 PROCEDURE: Esophagogastroduodenoscopy. PREOPERATIVE DIAGNOSIS: 1. Epigastric pain. 2. Chest pain. POSTOPERATIVE DIAGNOSES: Normal Esophagogastroduodenoscopy. MEDICATIONS: MAC as per Anesthesia. SCOPE: Olympus [id number]. HISTORY: This is a 56-year-old gentleman admitted to the hospital with chest pain and epigastric pain. EGD was done to rule out GI pathology. DESCRIPTION OF PROCEDURE: Informed consent obtained from the patient. The procedure, risks, benefits, alternatives were explained in layman's terms. He understood and all his pertinent questions were answered. Patient was brought to the endoscopy unit and was premedicated per Anesthesia. After adequate sedation, while he was lying in left lateral position, the gastroscope was introduced into the posterior pharynx and advanced under direct vision into the esophagus. The esophagus in its entire length appeared to be normal. No esophagitis, webs, rings, varices were seen. The scope was then passed through the esophagus into the stomach. Stomach was examined in both straight and retroflexed view, which revealed normal cardia, fundus, body, and antrum. The scope was then passed through the normal pylorus, into the duodenal bulb, and then 2nd part of duodenum which appeared to be normal. The scope was then removed. Patient tolerated procedure well. No complications were noted. Patient was then transferred to the recovery area in a stable condition. IMPRESSION: Gastric pain, atypical chest pain, with normal esophagogastroduodenoscopy. RECOMMENDATION: Advised to continue proton pump inhibitor. I will switch him to p.o., but more importantly, follow antireflux measures. Some conditions despite treatment. Follow up with me at the office after discharge. cc: Mamadou Vegas MD
--- NOTE | 2017-01-09 20:22 | CONSULTATION ---
DATE OF CONSULTATION: 01/09/2017 REQUESTING PHYSICIAN: Nora Cortez MD CONSULTING PHYSICIAN: Hilario Perera MD REASON FOR CONSULTATION: Abnormal HIDA scan. HISTORY OF PRESENT ILLNESS: This is a 56-year-old male who presented to the hospital 3 days ago with acute onset of upper abdominal pain radiating up into his chest. It has been waxing and waning in intensity with associated nausea. It was worse after eating. It is improved with morphine and actually has resolved as of today. Workup has included abdominal CT scan, HIDA scan and EGD. The EGD was normal. CT scan showed gallstones, hepatic steatosis and diverticulosis. The HIDA scan showed a decreased ejection fraction of 13%. PAST MEDICAL HISTORY: Coronary artery disease, hypertension, hyperlipidemia, GERD, seizures, migraines, chronic pneumonia. PAST SURGICAL HISTORY: Three-vessel CABG in 2012. Left lung lobectomy years ago. FAMILY HISTORY: Hypertension, [place], stroke. SOCIAL HISTORY: He stopped smoking and drinking in 1999. He denies illicit drug use. ALLERGIES: No known drug allergies. CURRENT MEDICATIONS: Aspirin 325 mg p.o. daily, Plavix 75 mg p.o. daily, heparin 5000 units subcutaneous q.12 hours, metoprolol-XL 100 mg p.o. daily, omeprazole 40 mg p.o. daily. REVIEW OF SYSTEMS: Ten systems reviewed and negative except as noted above. PHYSICAL EXAMINATION: Vital Signs: Temperature 98.2 degrees, pulse 83, respirations 23, blood pressure 128/82, O2 saturation 100%. General: Well-developed, well-nourished male, in no distress who looks his stated age. HEENT: Normocephalic, atraumatic. Extraocular muscles intact. Pupils equal, round, reactive to light. Sclerae anicteric. Moist mucous membranes. Hearing grossly normal. Neck: Supple. No thyromegaly. CARDIOVASCULAR: Regular rate and rhythm. Respiratory: Bilateral equal breath sounds. Gastrointestinal: Soft nondistended. No organomegaly or mass. He is mildly tender in the right upper quadrant. No rebound or guarding. Extremities: No clubbing, cyanosis or edema. Skin: Warm and dry. No rash. Musculoskeletal: Moves all extremities equally and well. LABORATORY: White blood cell count 5.8, hemoglobin 11.7, hematocrit 36.1, platelet count 187,000. Sodium 139, potassium 4, chloride 104, CO2 21, BUN 11, creatinine 1, glucose 81. IMAGING: As described in HPI. Also of note, the left lower lung on the CT scan looks much improved from the prior scan in November of this year. ASSESSMENT/PLAN: A 56-year-old male with symptomatic cholelithiasis and chronic cholecystitis. He also has biliary dyskinesia. His risk factors for surgery include coronary artery disease and chronic left lower lobe pneumonia. I have spoken with Dr. Mcginnis. He has recently had a cardiac workup with a stress test that looked good. He also had a cardiac ejection fraction which was normal, and from a cardiac standpoint he feels that he is low risk. I discussed with the patient laparoscopic cholecystectomy, which I think he needs to have in the near future after he has been off Plavix for about 5-6 days. We discussed the risks and benefits of bleeding, infection, injury to surrounding organs, such as the intestines or bile duct, perioperative cardiovascular or pulmonary difficulties, and other imponderables. He understands and agrees to proceed. I would recommend him staying off Plavix, but to continue his aspirin. We will plan on setting up surgery for middle of next week, and I think he could be discharged tomorrow to follow up with me then. cc: Hilario Perera MD
[2017-01-10] MEDS: ZOFRAN IV PRN (05:40)
[2017-01-10] MEDS: PRILOSEC PO SCH ×2 (05:40→06:22)
[2017-01-10 05:53] LABS: MANUAL DIFF NEEDED? NO
[2017-01-10 05:59] LABS: BASO% 0.4 % (0.0-0.8); EOS# 0.24 X1000 (0.0-0.7); EOS% 4.4 % (0.0-10.0); HEMATOCRIT 38.5 % (42.0-52.0); HEMOGLOBIN 12.8 g/dL (14.0-18.0); LYMPH# 1.29 X1000 (1.2-3.4); LYMPH% 23.5 % (20.5-51.1); MCH 28.4 PG (27-31); MCHC 33.2 g/dL (33-37); MCV 85.4 FL (81-99); MONO# 0.39 X1000 (0.11-0.59); MONO% 7.1 % (1.7-9.3); MPV 10.6 FL (7.4-10.4); NEUT% 64.6 % (42.2-75.2); PLT 219 X1000 (130-400); RBC 4.51 XMIL (4.7-6.1)
[2017-01-10 06:26] LABS: AGAP 13; BUN 14 mg/dL (8-22); CALCIUM 9.1 mg/dL (8.8-10.2); CHLORIDE 102 mmol/L (98-107); COSMO 286; SODIUM 143 mmol/L (136-145); TCO2 28 mmol/L (25-35)
[2017-01-10] MEDS: HEPARIN SUBQ SCH (08:45)
[2017-01-10] MEDS: TOPROL XL PO SCH (08:46)
[2017-01-10] MEDS: ASPIRIN PO SCH (08:46)
[2017-01-10] MEDS ORDERED: FISH OIL CONCENTRATE PO SCH (09:00)
--- NOTE | 2017-01-10 09:51 | CONSULTATION ---
DATE OF CONSULTATION: 01/10/2017 CHIEF COMPLAINT: Abdominal pain, history of coronary heart disease. REQUESTING PHYSICIAN: Hilario Perera MD. REASON FOR CONSULTATION: Preoperative cardiac evaluation. HISTORY: Mr. Doyle is a 56-year-old male who presented to the hospital on January 06 with severe abdominal pain, unbearable, recurrent. This had been going on for 2 or 3 days prior to admission. At the time of presentation, they did an abdominal CT that shows gallstones. Subsequently, they have done a HIDA scan that shows impaired ejection fraction of the gallbladder, and Dr. Perera has been summoned in consultation. He recommends cholecystectomy. The patient has a history of coronary heart disease and that is why they requested a preoperative cardiac evaluation. PAST MEDICAL HISTORY: Positive for coronary heart disease. Back in 2012, this patient underwent heart catheterization that showed multivessel disease. He was, therefore, referred to the [facility] surgical team, and they performed a coronary bypass procedure on 04/13/2013, vein graft to diagonal and vein graft to marginal. His LAD was severely diseased. His right coronary artery was free of any significant stenosis. His ejection fraction back then was normal. Since then, the patient got lost to followup. He did not comply with his medical regimen. Eventually, he resurfaced back in my office in October of 2016 with some atypical chest discomfort. We put him back on his medicines, and since then, he has been back to the hospital, admitted on November 05 with chest pains. At that time, he was treated conservatively and discharged. He resurfaced again through [facility] on December 24 with more chest pains. They did a nuclear perfusion stress test on December 24 that showed a fixed inferolateral defect consistent with inferolateral scar. There was no inducible ischemia. His ejection fraction was normal. Echocardiogram done around the same time, 12/25/2016, shows preserved ejection fraction with a focal wall motion abnormality at the base of the posterolateral wall. The patient has been advised to pursue medical therapy. He does have a history of hypertension, hyperlipidemia. He has had migraine headaches. He had gastric reflux. The patient has a history of chronic lung disease, previous thoracotomy in 1997. Subsequently, he has had imaging studies of the chest that have shown the presence of a dense area in the left lower lobe which is suspected to be a chronic pneumonia, chronic scar. This has been treated in the hospital with antibiotics. However, he is scheduled to have followup with pulmonologists. SURGICAL HISTORY: Also positive for the aforementioned coronary bypass surgery. SOCIAL HISTORY: He is disabled. He is . He has children. He is living with a girlfriend. He has quit smoking many years ago. FAMILY HISTORY: Positive for hypertension. No other significant positives. HOME MEDICATIONS: At the time of this visit to the hospital are positive for nitroglycerin as needed, metoprolol 100 daily, clopidogrel 75 daily, aspirin 81 mg daily. His medications according to my chart should include Lipitor 80 mg daily and fish oil 1200 daily. REVIEW OF SYSTEMS: He has chronic jabbing pains in the left side of the chest. This is intermittent, not provoked by exercise. He has no pattern. That is the only major issue that he has. He is awaiting pulmonary consultation. All of the other systems were reviewed, and they are really unremarkable. He has no exertional chest pain or angina or exertional dyspnea. PHYSICAL EXAMINATION TODAY: Vital signs: Blood pressure is 136/80, temperature 97.8, pulse 67, respirations 16. General: He is awake, alert, oriented, in no distress. HEENT Normal. Chest: Clear to auscultation and percussion on the right side. On the left side, the left base is diminished. No rales were noted. Cardiac: Heart sounds are regular and rhythmic. No gallop or murmur. He has a well-healed sternotomy scar. Abdomen: Slightly tender over the right upper quadrant. Bowel sounds diminished. No masses are noted. Extremities: Good pulses, no peripheral edema. Neurological: Follows commands, moves four extremities. BLOOD WORK: Hemoglobin 12.8, hematocrit 38.5, white count 5490. Sodium 143, potassium 4.0, BUN 14, creatinine 1.2. His cholesterol panel shows a total cholesterol of 226, LDL 131, HDL 70, triglycerides 124. Lipase 32. Troponins have been checked at this time 3 times; they are negative. EKG: Actually, there was no EKG done at this time. The last EKG on record was done at 5:52 a.m. on 12/25/2016 on his previous admission to [facility]. At that time, he had sinus rhythm, rate 80, right bundle-branch block, extreme left axis deviation and some widening of the QRS with a pattern of inferior scar. IMPRESSION: 1. Patient who presents with abdominal pain and findings consistent with chronic plus acute cholecystitis. 2. The patient has chronic coronary artery disease, status post bypass in 2013 with a stable angina pectoris pattern. 3. The patient has hyperlipidemia. 4. He has a history of hypertension. 5. Chronic lung disease, chronic scar left lung with recurrent thoracic pains, noncardiac. RECOMMENDATION: From a cardiology viewpoint, this patient must be placed back on his regimen of cholesterol-lowering medications. That is really mandatory prior to his gallbladder surgery. He needs to resume his fish oil medicine. I will arrange for a followup at my office in a few weeks. From a cardiology viewpoint, there is no contraindication to proceeding with cholecystectomy at this point in time providing that he continues to take his beta-mikey, his cholesterol-lowering medication, and low-dose aspirin throughout the perioperative period. Please call me should you have any questions or concerns. cc: Harjit Mcginnis MD
[2017-01-10 11:49] VITALS: BP 136/84
[2017-01-10] MEDS ORDERED: LIPITOR PO SCH (21:00)
--- NOTE | 2017-01-11 03:57 | DISCHARGE SUMMARY ---
ADMISSION DATE: 01/06/2017 DISCHARGE DATE: 01/10/2017 DATE OF ADMISSION: 12/29/2016. DATE OF DISCHARGE: 01/10/2017. CONSULTATIONS: 1. Dr. Vegas with Gastroenterology. 2. Dr. Hilario Perera with General Surgery. 3. Dr. Mcginnis with Cardiology. PERTINENT PROCEDURES: Abdomen and pelvis CT: Showed cholelithiasis, hepatic steatosis, diverticulosis coli. HIDA scan: Showed an abnormally low EF of 35%. EGD performed by Dr. Vegas: Normal. DISCHARGE DIAGNOSES: 1. Asymptomatic cholelithiasis with chronic cholecystitis, biliary dyskinesia. HIDA scan showed an EF of 35%. Dr. Perera discussed having a cholecystectomy with the patient. However, he has been on Plavix. He will need to be discharged home and be off his Plavix for 5-6 days and continue his aspirin and they will set up his surgery for the middle of next week and follow up with Dr. Perera. 2. Abdominal pain. See #1. 3. Coronary artery disease status post CABG. The patient has been approved for surgery for Cardiology. 4. Obesity. Aware, patient educated on diet. HOSPITAL COURSE: Mr. Doyle is a 56-year-old male presented to the hospital with acute onset of upper abdominal pain radiating up into his chest that waxes and wanes in intensity associated with nausea, worse after eating. He had improvement with morphine. Workup included an abdominal CT, HIDA scan, and a normal EGD. His CT scan showed gallstones, hepatic steatosis, and diverticulosis. HIDA scan showed a decreased EF of 13%. Given his symptomatic cholelithiasis with chronic cholecystitis and biliary dyskinesia and his risk factors for surgery including coronary artery disease and his chronic left lower pneumonia, Dr. Perera spoke with Dr. Mcginnis. He had a recent cardiac workup with a stress test that looked good. His EF was normal. From a cardiac standpoint, he felt that he was low risk. Dr. Perera discussed with him a laparoscopic cholecystectomy in the near future after he has been off Plavix for 5-6 days. He recommends the patient being off his Plavix but continuing his aspirin and they plan on setting up the surgery for the middle of the next week. He feels that he can be discharged today and follow up with him then. VITAL SIGNS AT THE TIME OF DISCHARGE: Temperature is 98.1 degrees, heart rate 66, respirations 22, blood pressure 136/84, O2 is 98% on room air. DISCHARGE DIET: Healthy heart. DISCHARGE MEDICATIONS: 1. Aspirin 81 mg p.o. daily. 2. Lipitor 80 mg p.o. at bedtime. 3. Toprol-XL 100 mg p.o. daily. 4. Nitroglycerin 0.4 mg tablet sublingual p.r.n. 5. Fish oil 1000 mg p.o. b.i.d. 6. Prilosec 40 mg p.o. daily. FOLLOWUP: Mr. Doyle will follow up with Dr. Perera to confirm his surgery for next week. He can return to the ED for any worsening of symptoms. This is LORRIE Donnelly, doing a discharge summary for Dr. Maradiaga. Dictated by LORRIE Donnelly for Andrade Maradiaga MD cc: Andrade Maradiaga MD I have seen and provided face to face evaluation of the patient including revision of his labs, imagine studies and medications and he is clinically stable for discharge. [facility]
== END 2017-01-10 13:38 | disposition home or self-care (01) ==
LOC: ED 15:24 → 4N 21:16 → SUATTDRO 21:16 → 4N 21:25
PROVIDERS: ATTEND Internal Medicine